=== PATIENT | female | born 2000 | race Caucasian/White ===

== ENCOUNTER 2023-08-07 15:00 | Emergency (ER) | payer OTHER, SELFPAY ==
--- NOTE | ~2023-08-07 | US_ITS ---
EXAMINATION: US pelvic complete DATE: 08/07/2023 15:54 INDICATION: R/o torsion of right ovary TECHNIQUE: Multiple transabdominal and endovaginal sonographic images of the pelvis were obtained. COMPARISON: None. FINDINGS: Uterus: 8.4 x 4.4 x 5.6 cm. Anteverted uterus, mildly retroflexed Endometrial complex measures 6.1 mm . Right Ovary: 4.0 x 2.2 x 2.5 cm. Vascular flow is present. No adnexal mass. Left Ovary: 2.3 x 1.9 x 1.9 cm. Vascular flow is present. No adnexal mass. There is no free fluid in the pelvis. IMPRESSION: Normal pelvic sonogram findings. Reviewed, dictated and finalized at location K. CING SYSTEM OPERATOR
[2023-08-07 15:02] VITALS: BP 123/57; PULSE 88; RESP 16; TEMP 36.2; O2SAT 100
--- NOTE | 2023-08-07 15:26 | ED.ABDPAIN ---
HPI - Abdominal Pain General Chief Complaint: Abdominal Pain Stated Complaint: abd pain Time Seen by Provider: 08/07/23 15:07 History of Present Illness HPI narrative: 23-year-old female presenting to the emergency department for evaluation of right lower quadrant pain that occurred during sexual intercourse. Patient states that she was recently diagnosed with Trichomonas, candidiasis and chlamydia. Patient has completed all of her treatments for these. Patient states that she was having transitional vaginal intercourse and had onset of pelvic pain. Patient reports that the pain lasted approximately 30 minutes and has since resolved. Patient denies any current visual bleeding or vaginal discharge. Related Data Allergies Allergy/AdvReac Type Severity Reaction Status Date / Time No Known Allergies Allergy Verified 08/07/23 15:01 Review of Systems Review of Systems: All systems reviewed & are unremarkable except as noted in HPI and below Exam Narrative: APPEARANCE: Well appearing, no pain, no distress, well-nourished. HEAD: normocephalic, atraumatic. EYES: PERRLA/EOMI, conjunctivae clear. NOSE: Normal no drainage EARS:TMS clear with good light reflex. THROAT: Pharynx clear, no exudate. NECK: Supple. No adenopathy, no masses. RESPIRATORY: Airway patent, respirations nonlabored. Clear to auscultation bilaterally, no rales, rhonchi, wheezing. CARDIOVASCULAR: Regular rate and rhythm without murmurs rubs or gallops. ABDOMINAL: Soft, nontender, nondistended, normal bowel sounds MUSCULOSKELETAL: Moves all extremities. Strength/ROM intact, No edema, No calf tenderness. NEURO: Alert. Cranial nerves II through XII intact. Good gait. Good coordination Pelvic: Patient declined a pelvic exam. SKIN: Warm, dry. Normal Color PSYCHIATRIC: Normal affect/mood. Course Course Emergency Course: 23-year-old female presenting ED for evaluation of vaginal pain. Ultrasound showed no evidence of torsion. Patient declined the pelvic exam the patient did feel improved. Patient was encouraged to have close follow-up with her physicians. All questions concerns were addressed patient was well-appearing at time of discharge. Vital Signs Vital signs: Vital Signs Temperature 97.2 F L 08/07/23 15:02 Pulse Rate 88 08/07/23 15:02 Respiratory Rate 16 08/07/23 15:02 Blood Pressure 123/57 L 08/07/23 15:02 Pulse Oximetry 100 08/07/23 15:02 Oxygen Delivery Room Air 08/07/23 15:02 Temperature 98.2 F 08/07/23 16:55 Pulse Rate 71 08/07/23 16:55 Respiratory Rate 15 08/07/23 16:55 Blood Pressure 119/73 08/07/23 16:55 Pulse Oximetry 100 08/07/23 16:55 Oxygen Delivery Room Air 08/07/23 15:02 MDM - Abdominal Pain Differential Diagnosis Differential diagnosis: Likely abdominal pain, constipation and other Lab Data Attestation: I reviewed the patient's lab results. Imaging Data Radiologist's impression: ITS Impressions Pelvis Ultrasound 08/07/23 16:18 IMPRESSION: Normal pelvic sonogram findings. Discharge Plan Discharge Clinical Impression: Abdominal pain Patient Disposition: Home, Self-Care Condition: Improved Instructions: Antibiotic Form, Abdominal Pain (ED) Additional Instructions: Pelvic rest. Tylenol and ibuprofen for pain control. Have close follow-up with your primary care physician. Follow-up/Referrals: Vernell Ortega [Other]
[2023-08-07 16:55] VITALS: BP 119/73; PULSE 71; RESP 15; TEMP 36.8; O2SAT 100
== END 2023-08-07 17:39 | disposition home or self-care (01) ==
PROVIDERS: Emergency Provider Emergency Medicine
DX: R10.31 Right lower quadrant pain (principal)
CPT/HCPCS: 76856; 99284

== ENCOUNTER 2025-03-27 11:44 | Emergency (ER) | payer OTHER, SELFPAY ==
[2025-03-27 11:51] VITALS: BP 132/71; PULSE 99; RESP 16; TEMP 36.6; O2SAT 100
--- OUTSIDE RECORDS SUMMARY | 2025-03-27 12:18 | XMS_ITS | Clinical Summary ---
Author Organization [address] Address [address] [place] [id number] Care Team Providers Care Pin Ticket Machine Operator Name Role Phone Vernell Ortega MD Primary Care Provider [phone] Allergies No known active allergies Medications hydrOXYzine (ATARAX) 25 mg tablet Take 1 tablet (25 mg total) by mouth every 8 (eight) hours as needed 3 Active escitalopram (LEXAPRO) 20 mg tablet 1 tab(s) orally once a day 2 Active fexofenadine (LARRY) 30 mg/5 mL suspension Take 5 mL (30 mg total) by mouth 2 (two) times a day as needed Active metroNIDAZOLE (METROGEL) 0.75 % (37.5mg/5 gram) vaginal gelIndications: Bacterial Vaginosis Apply to vagina nightly for 5 nights. 70 g 4 Active Additional Information Patient not taking.Reported on 11/12/2024 Active Problems No known active problems Social History Tobacco Use Types Packs/Day Years Used Date Smoking Tobacco: Never Smokeless Tobacco: Never Tobacco Cessation:Counseling Given: Not Answered Comments Unknown Sex and Gender Information Value Date Recorded Sex Assigned at Not on file Legal Sex Female 7:26 PM CDT Gender Identity Not on file Sexual Orientation Not on file Obstetrics History Last Filed Vital Signs Vital Sign Reading Time Taken Comments Blood Pressure 99/65 11/12/2024 6:09 PM CDT Pulse 83 11/12/2024 6:09 PM CDT Temperature 36.8 C (98.2 F) 11/12/2024 6:09 PM CDT Respiratory Rate 18 11/12/2024 6:09 PM CDT Oxygen Saturation 98% 11/12/2024 6:09 PM CDT Inhaled Oxygen Concentration - - Weight 62.8 kg (138 lb 8 oz) 11/12/2024 6:09 PM CDT Height 170.2 cm (5' 7.01) 11/12/2024 6:09 PM CD T Body Mass Index 21.69 11/12/2024 6:09 PM CDT Plan of Treatment Health Maintenance Due Date Last Done Comments Cervical Cancer Screening 2001 Depression Screening 2001 Hepatitis C Screening 2001 Meningococcal B Vaccine (1 of 2 - Standard) 2017 Regular Well Visit/Exam 18-64 2019 Covid-19 Vaccine ( season) 2024 09/12/2021, 02/04/2021, 01/14/2021 Influenza Vaccine (#1) 2025 , 05/06/2020, 05/30/2009 DTaP/Tdap/Td Vaccine (8 - Td or Tdap) 03/15/2033 03/15/2023, 03/05/2013, 04/03/2007, Additional history exists Hepatitis B Screening Completed 06/12/2002 , 2001, 2001 Pneumococcal vaccine <65 Aged Out 12/07/2002, 11/21 No longer eligible based on patient's age to complete this topic Varicella Vaccines Completed 04/03/2007, 06/12/2002 HPV Vaccines Completed 02/09/2016, 04/22, 03/05/2013 Insurance [employer] [facility]ESS [facility] Care Teams Pin Ticket Machine Operator Relationship Specialty Start Date End Date Vernell Ortega MD [address] [place], [place] [phone] PCP - General Family Medicine 03/26/23
--- OUTSIDE RECORDS SUMMARY | 2025-03-27 12:18 | XMS_ITS | Encounter Summary ---
Author Organization [facility] Address [address] [place] [address] Care Team Providers Care Hotel Breakfast Attendant Name Role Phone Vernell Ortega MD Primary Care Provider [phone] Encounter Details Date Type Department Care Team (Late Contact Info) Description 03/27/2025 Orders Only [address] [address] Zully Barnett RN [address] [place] [address] Social History Tobacco Use Types Packs/Day Years Used Date Smoking Tobacco: Never Smokeless Tobacco: Never Alcohol Use Standard Drinks/Week Comments No 0 (1 standard drink = 0.6 oz pur e alcohol) PHQ-2 Answer Date Recorded PHQ-2 Total Score 0 02/03/2023 Comments No Sex and Gender Information Value Date Recorded Sex Assigned at Not on file Legal Sex Female 9:26 PM CDT Gender Identity Not on file Sexual Orientation Not on file Occupation Industry Job Start Date Job End Date Not on file Not on file Not on file Not on file Travel History Travel Start Travel End [place] 03/07/2025 03/12/2025 documented as of this encounter Plan of Treatment Upcoming Encounters Date Type Department Care Team (Late Contact Info) Description 04/17/2025 12:30 PM CDT Appointment [address] [address] [place] [address] [place] [address] 06/05/2025 12:45 PM CDT Appointment [facility] Cardiology [address] [place] [address] Cristhian Hamm MD [facility] [place] [address] documented as of this encounter Visit Diagnoses Not on filedocumented in this encounter Additional Health Concerns Assessment Noted Time A Body Mass Index follow-up plan has been documented for the patient 08/12/2023 9:15 PM FACILITY MAINTENANCE MANAGER documented as of this encounter Care Teams Hotel Breakfast Attendant Relationship Specialty Start Date End Date Vernell Ortega MD [address] [place] [address] PCP - General Family Medicine 08/25/20 documented as of this encounter
--- OUTSIDE RECORDS SUMMARY | 2025-03-27 12:18 | XMS_ITS | Encounter Summary ---
Author Organization [facility] Address [address] [place] [address] Care Team Providers Care Isotope Technologist Name Role Phone Vernell Ortega MD Primary Care Provider [phone] Encounter Details Date Type Department Care Team (Late Contact Info) Description 01/28/2025 Results Follow-Up [facility] [address] [place] [address] Goldy Chiang, [place] [address] [place] [address] CBC (Hemogram), Urinalysis with microscopic, EKG 12 Lead, Additional followed-up results: 10 Social History Tobacco Use Types Packs/Day Years [...] file Travel History Travel Start Travel End [place] 03/07/2025 03/12/2025 documented as of this encounter Plan of Treatment Upcoming Encounters Date Type Department Care Team (Late Contact Info) Description 04/17/2025 12:30 PM CDT Appointment [facility] [address] [place] [address] Vernell Ortega MD [address] [place] [address] 06/05/2025 12:45 PM CDT Appointment [facility] Cardiology [address] [place] [phone] Cristhian Hamm MD [address] [place] [address] documented as of this encounter Procedures Procedure Name Priority Date/Time Associated Diagnosis Comments URINE CULTURE Routine 01/28/2025 3:09 PM CDT Abnormal urinalysis documented in this encounter Results * Urine culture (01/28/2025 3:09 PM CDT) Final Microbiology results [facility] Comment: Urine Culture Final Source: Report Date/Time: 01/30/2025 09:45 Collection Date/Time: 01/28/2025 15:09 QLAB Clinical Information Urine specimen collection type? Clean Catch Culture Observation No Growth Urine URINE SPECIMEN FROM URINARY BLADDER / Unknown 01/28/2025 3:09 PM CDT 01/28/2025 3:09 PM CDT Comment:- Narrative [facility] - 01/30/2025 9:45 AM CDT Testing performed at [facility], [address] [place] [address]. CLIA [id number] Phone [phone] Ext [phone] Quill Layer Quoc Campuzano MD us Vernell Ortega MD MICROBIOLOGY - GENERAL ORDERABLE S Final Result [facility] [address] [place] [phone] documented in this encounter Visit Diagnoses Diagnosis Abnormal urinalysis- Primary Other nonspecific finding on examination of urine documented in this encounter Additional Health Concerns Assessment Noted Time A Body Mass Index follow-up plan has been documented for the patient 08/12/2023 9:15 PM WELL POINT PUMPING SUPERVISOR documented as of this encounter Care Teams Isotope Technologist Relationship Specialty Start Date End Date Vernell Ortega MD [address] [place] [address] PCP - General Family Medicine 08/25/20 documented as of this encounter
--- OUTSIDE RECORDS SUMMARY | 2025-03-27 12:18 | XMS_ITS | Encounter Summary ---
Author Organization [employer] Address [address] [place] [address] Care Team Providers Care Dedicated Driver Name Role Phone Vernell Ortega MD Primary Care Provider [phone] Encounter Details Date Type Department Care Team (Late Contact Info) Description 03/26/2025 Results Follow-Up [address] [address] Vernell Ortega MD [address] [place] [address] Thinprep Imaging Pap And HPV Mrna E6/E7 Social History Tobacco Use Types Packs/Day Years [...] file Travel History Travel Start Travel End [place] 03/07/2025 03/12/2025 documented as of this encounter Plan of Treatment Upcoming Encounters Date Type Department Care Team (Late Contact Info) Description 04/17/2025 12:30 PM CDT Appointment [address] [address] Vernell Ortega MD [address] [place] [address] 06/05/2025 12:45 PM CDT Appointment [facility] Cardiology [address] [place] [address] Cristhian Hamm MD [facility] [place] [address] documented as of this encounter Visit Diagnoses Not on filedocumented in this encounter Additional Health Concerns Assessment Noted Time A Body Mass Index follow-up plan has been documented for the patient 08/12/2023 9:15 PM CHART WRITER documented as of this encounter Care Teams Dedicated Driver Relationship Specialty Start Date End Date Vernell Ortega MD [address] [place] [address] PCP - General Family Medicine 08/25/20 documented as of this encounter
--- OUTSIDE RECORDS SUMMARY | 2025-03-27 12:18 | XMS_ITS | Encounter Summary ---
Author Organization [employer] Address [address] [place] [address] Care Team Providers Care Talent Buyer Name Role Phone Vernell Ortega MD Primary Care Provider [phone] Reason for Visit * Reason Onset Date Comments lexapro side effects 03/26/2025 Encounter Details Date Type Department Care Team ([facility] st Contact Info) Description 03/26/2025 Telephone [facility] Family Practice [address] [place] [address] Zully Barnett RN [address] [place] [address] lexapro side effects Social History Tobacco Use Types Packs/Day Years [...] file Travel History Travel Start Travel End [place] 03/07/2025 03/12/2025 documented as of this encounter Miscellaneous Notes * Telephone Encounter - Zully Barnett RN - 03/26/2025 3:18 PM CDT Patient is calling in regards to side effects of the lexapro she was taking it prior to bedtime. She would wake up in the middle of the night muscle pain and chills and feeling off. She has stopped the lexapro she would like to wait a week or two and then discuss starting a new medication. She willcall next week with an update. documented in this encounter Plan of Treatment Upcoming Encounters Date Type Department Care Team (Late st Contact Info) Description 04/17/2025 12:30 PM CDT Appointment [facility] Family Practice [address] [place] [phone] Vernell Ortega MD [address] [place] [address] 06/05/2025 12:45 PM CDT Appointment [facility] Cardiology [address] [place] [phone] Cristhian Hamm MD [address] [place] [phone] documented as of this encounter Visit Diagnoses Not on filedocumented in this encounter Additional Health Concerns Assessment Noted Time A Body Mass Index follow-up plan has been documented for the patient 08/12/2023 9:15 PM AIRLINE LOUNGE RECEPTIONIST documented as of this encounter Care Teams Talent Buyer Relationship Specialty Start Date End Date Vernell Ortega MD [address] [place] [address] PCP - General Family Medicine 08/25/20 documented as of this encounter
--- OUTSIDE RECORDS SUMMARY | 2025-03-27 12:18 | XMS_ITS | Clinical Summary ---
Author Organization [employer] Address [address] [place] [address] Care Team Providers Care Production Sorter Name Role Phone Henrry Jacob MD Primary Care Provider [phone] Source Comments This disclosure is being made pursuant to the Adknowledge program and maynot contain all information available regarding this patient.[employer] [facility] Allergies No known active allergies Medications fexofenadine (LARRY) 30 MG/5ML suspension Take 5 mLs by mouth 2 (two) times daily as needed. 1 tsp(s) By Mouth 2 Times A Day prn Active hydrOXYzine (ATARAX) 25 MG tablet Take 1 (one) tablet by mouth every 8 (eight) hours as needed for Anxiety. 30 tablet 02/03/2023 Active escitalopram (Lexapro) 10 MG tablet Take 1 (one) tablet (10 mg total) by mouth daily. 30 tablet 2 03/20/2025 Active fluconazole (DIFLUCAN) 150 MG tablet Take one tablet every 72 hours x 3 3 tablet 03/27/2025 Active Active Problems Problem Noted Date Diagnosed Date ISAIAH (generalized anxiety disorder) 03/18/2020 Social anxiety disorder 03/18/2020 Myopia of both eyes 02/19/2020 Vegetarian 02/26/2019 Wears glasses 12/28/2018 History of appendectomy 12/28/2018 History of tonsillectomy 04/22/2016 Allergic rhinoconjunctivitis 03/15/2016 Acne vulgaris 01/15/2015 Need for desensitization to allergens 04/13/2012 Overview (08/01/2014): Overview: ALLISON RICHARDSON MD Overview: ALLISON RICHARDSON MD Resolved Problems Problem Noted Date Diagnosed Date Resolved Date Streptococcal sore throat 02/26/2019 Overview (02/26/2019): Strep throat - Onset Date: Decreased ROM of lumbar spine 01/19/2018 02/15/2018 Muscle spasm 01/19/2018 02/15/2018 Muscle weakness 01/19/2018 02/15/2018 Chronic bilateral low back p ain without sciatica 01/17/2018 02/15/2018 Rosacea 03/17/2017 07/01/2017 Dietary imbalance: doesn't eat meat 08/03/2016 02/19/2020 Appendicitis 09/24/2015 09/24/2015 Overview (09/24/2015): Appendicitis, acute - Onset Date: Encounters Date Type Department Care Team Description 03/27/2025 Orders Only [facility] [address] [phone] Zully Barnett RN 03/26/2025 Results Follow-Up [place] [address] [address] [phone] Henrry Jacob MD Thinprep Imaging Pap And HPV Mrna E6/E7 03/26/2025 Telephone [place] [address] [phone] Zully Barnett, RN lexapro side effects 03/20/2025 3:30 PM CDT Office Visit [place] [address] [phone] Henrry Jacob MD Routine medical exam (Primary Dx); Routine Papanicolaou smear; Anxiety 03/20/2025 Travel 03/04/2025 9:15 AM CDT Office Visit [facility] [address] [place] [address] [address] [phone] Cristhian Hamm MD SOB (shortness of breath) (Primary Dx); Lightheadedness 03/04/2025 8:00 AM CDT Clinical Support [facility] [address] [place] [phone] Cristhian Hamm MD Cook, Cynthia A, RN Chest pain, unspecified type; SOB (shortness of breath); Light headed 03/03/2025 Travel 02/27/2025 4:20 PM CDT Office Visit [facility] [address] [place], [place] [phone] Henrry Jacob MD Anxiety (Primary Dx); Dizziness; Lightheadedness; Palpitations 02/27/2025 Travel 02/13/2025 10:20 AM CDT Clinical Support [facility] [address] [place], [place] [phone] Cristhian Hamm MD MarkerAmanda harmon, RTR Chest pain, unspecified type; SOB (shortness of breath); Light headed 02/13/2025 10:15 AM CDT Lab [facility] [address] [place] [phone] Cristhian Hamm MD Chest pain, unspecified type; SOB (shortness of breath); Light headed 02/13/2025 9:30 AM CDT Office Visit [facility] [address] [place] [phone] Henrry Jacob MD Rafi, Adam, MD Chest pain, unspecified type (Primary Dx); SOB (shortness of breath); Light headed 02/13/2025 Results Follow-Up [facility] [address] [place] [phone] Cristhian Hamm MD Troponin I, D-dimer, quantitative, XR Chest 2 Views, Additional followed-up results: 2 02/13/2025 Travel 02/07/2025 4:00 PM CDT Clinical Support [facility] [address] [place] [phone] Henrry Jacob MD Wilson, Annie N, RTR Dizziness; Lightheadedness; Palpitations 02/07/2025 Travel 01/28/2025 4:30 PM CDT Lab [facility] [place] [phone] Henrry Jacob MD 01/28/2025 4:15 PM CDT Clinical Support [facility] [address] [place], [place] [address] [phone] Henrry Jacob MD Ritterbusch, Tammy J, [facility] Dizziness; Lightheadedness; Palpitations 01/28/2025 3:25 PM CDT Lab [facility] [place] [phone] Henrry Jacob MD Dizziness; Lightheadedness; Palpitations 01/28/2025 3:20 PM CDT Clinical Support [facility] [place] [phone] Henrry Jacob MD Bigelow, Elisha A, RTR Dizziness; Lightheadedness; Palpitations 01/28/2025 2:10 PM CDT Office Visit [address] [phone] Henrry Jacob MD Anxiety (Primary Dx); Dizziness; Lightheadedness; Palpitations 01/28/2025 Results Follow-Up [address] [phone] Goldy Chiang MA CBC (Hemogram), Urinalysis with microscopic, EKG 12 Lead, Additional followed-up results: 10 01/28/2025 Travel from Last 3 Months Immunizations Immunization Administration Dates Next Due COVID-19 (PFIZER-purple cap) MRNA ages 12+ 09/12/2021,02/04/2021,01/14/2021 DTaP (Infanrix) DTaP 04/03/2007,09/07/19 03,2001,10/10,2001 Hepatitis A (Vaqta) HepA pediatric 12/28/2018 Hepatitis A pediatric 03/05/2013 Hepatitis B-Haemophilus infl uenzae type b (Comvax) HepB-Hib 06/12/2002,2001,2001 Human Papillomavirus (Gardasil 4) HPV4 3,03/05/2013 Human Papillomavirus (Gardas il 9) 9vHPV 02/09/2016 Influenza (AFLURIA) IIV3, pr efilled syringe 05/28/2021 Influenza (FLUZONE) IIV4, pr efilled syringe/single dose vial 05/06/2020 Influenza Split 05/30/2009 LIVE Vpiaoqj-Wtcio-Zlrrhxf ( M-M-R II) MMR 04/03/2007,06/12/2002 LIVE Varicella (Varivax) RICHARD 04/03/2007,06/12/20 Meningococcal Conjugate (Men actra) MCV4 MenACWY-D 12/28/2018,03/05/2013 Pneumococcal Conjugate-7 (Pr evnar 7) PCV7 12/07/2002,2001 Polio (Ipol) IPV 04/03/2007, 3,2001,08/01 Tdap 03/05/2013 Tetanus, diphtheria and acel lular pertussis (Adacel)Tdap 03/15/2023 Family History Medical History Relation Name Comments Heart disease Maternal Grandfather Allergic rhinitis Mother Arthritis Mother Depression Mother Other Other No significant family history - All Family: Noted on 2010-08-04 13:34:55 Heart disease Paternal Grandfather Diabetes Neg Hx Relation Name Status Comments Maternal Grandfather Mother Other Paternal Grandfather Social History Tobacco Use Types Packs/Day Years Used Date Smoking Tobacco: Never Smokeless Tobacco: Never Tobacco Cessation:Counseling Given: Not Answered Alcohol Use Standard Drinks/Week Comments No 0 [...] file Travel History Travel Start Travel End [place] 03/07/2025 03/12/2025 Last Filed Vital Signs Vital Sign Reading Time Taken Comments Blood Pressure 122/82 03/20/2025 3:38 PM CDT Pulse 81 03/20/2025 3:38 PM CDT Temperature 36.3 C (97.4 F) 03/20/2025 3:38 PM CDT Respiratory Rate 20 03/05/2023 2:16 PM CDT Oxygen Saturation 100% 03/20/2025 3:38 PM CDT Inhaled Oxygen Concentration - - Weight 60.8 kg (134 lb) 03/20/2025 3:38 PM CDT Height 170.2 cm (5' 7) 03/20/2025 3:38 PM CDT Body Mass Index 20.99 03/20/2025 3:38 PM CDT Plan of Treatment Upcoming Encounters Date Type Department Care Team (Late st Contact Info) Description 04/17/2025 12:30 PM CDT Appointment [facility] [address] [place] [phone] Henrry Jacob MD [address] [place] [phone] 06/05/2025 12:45 PM CDT Appointment [facility] [address] [place] [phone] Cristhian Hamm MD [address] [place] [phone] Health Maintenance Due Date Last Done Comments Meningococcal B Vaccine (1 of 2 - Standard) 2017 Chlamydia Screening 08/09/2024 08/09/2023 ( Charged), 08/09/2023 Influenza Vaccine (#1) 2025 , 05/06/2020, 05/30/2009 COVID-19 Vaccine ( season) 2026 09/12/2021, 02/04/2021, 01/14/2021 Postponed from 04/22/2024 (Patient Declined) Annual Wellness Visit 03/20/2026 03/20/2025 , 03/15/2023, 08/25/2020 Lab-Cholesterol Screening 02/21/20272021, 12/23/2021, 06/02/2015, Additional history exists Cervical Cancer Screening 03/20/2028 Pap Smear 03/20/2028 03/20/2025, 03/15/2023 HPV 03/20/2030 03/20/2025 Tetanus/Pertussis Vaccine Teen/Adult (8 - Td or Tdap) 03/15/2033 03/15/2023, 03/05/2013, 04/03/2007, Additional history exists Zoster (Shingles) Vaccine 50+ (1 of 2) 2051 RSV Adult (1 - 1-dose 75+ series) 2076 HIB Vaccine Completed 06/12/2002, 09/22, 2001 Hepatitis B Vaccine Completed 06/12/2002, 2001, 2001 Pneumococcal Vaccines 0-49 yo Aged Out 12/07/2002, 2001 No longer eligibl e based on patient's age to complete this topic IPV Vaccine Completed 04/03/2007, 08/22, 2001, Additional history exists HPV Vaccine (9-26yo & Shared Decision 27-45yo) Completed 02/09/2016, 05/08/2013, 03/05/2013 Hepatitis A Vaccine Completed 12/28/2018, 3 Meningococcal Conjugate Vaccine Completed 12/28/2018, 03/05/2013 Lab-Hepatitis C Screening Completed 08/09/2023 RSV < 20 Months Aged Out No longer el igible based on patient's age to complete this topic Procedures Procedure Name Priority Date/Time Associated Diagnosis Comments THINPREP IMAGING PAP AND HPV MRNA E6/E7 Routine 03/20/2025 4:37 PM CDT Routine Papanicolaou smear Routine medical exam STRESS TEST ONLY EXERCISE Routine 03/04/2025 7:53 AM CDT Chest pain, unspecified type SOB (shortness of breath) Light headed XR CHEST 2 VIEWS Routine 02/13/2025 10:2 0 AM CDT Chest pain, unspecified type SOB (shortness of breath) Light headed D-DIMER, QUANTITATIVE Routine 02/13/2025 10:11 AM CDT Chest pain, unspecified type SOB (shortness of breath) Light headed TROPONIN I Routine 02/13/2025 10:11 AM CDT Chest pain, unspecified type SOB (shortness of breath) Light headed PROBNP, N-TERMINAL Routine 02/13/2025 10 :11 AM CDT Chest pain, unspecified type SOB (shortness of breath) Light headed TTE (TRANSTHORACIC ECHO) COMPLETE Routine 02/07/2025 3:57 PM CDT Dizziness Lightheadedness Palpitations HOLTER MONITOR - 48 HOUR Routine 01/28/2025 3:40 PM CDT Dizziness Lightheadedness Palpitations URINALYSIS WITH MICROSCOPIC Routine 01/28/2025 3:27 PM CDT Dizziness Lightheadedness Palpitations FOLATE Routine 01/28/2025 3:27 PM CDT Dizziness Lightheadedness Palpitations VITAMIN B12 Routine 01/28/2025 3:27 PM CDT Dizziness Lightheadedness Palpitations 25 HYDROXY VITAMIN D Routine 01/28/2025 3:27 PM CDT Dizziness Lightheadedness Palpitations T4, FREE Routine 01/28/2025 3:27 PM CDT Dizziness Lightheadedness Palpitations T3, FREE Routine 01/28/2025 3:27 PM CDT Dizziness Lightheadedness Palpitations IRON DEFICIENCY PANEL Routine 01/28/2025 3:27 PM CDT Dizziness Lightheadedness Palpitations TSH Routine 01/28/2025 3:27 PM CDT Dizziness Lightheadedness Palpitations COMPREHENSIVE METABOLIC PANEL Routine 01/28/2025 3:27 PM CDT Dizziness Lightheadedness Palpitations CBC (HEMOGRAM) Routine 01/28/2025 3:27 PM CDT Dizziness Lightheadedness Palpitations EKG 12-LEAD Routine 01/28/2025 3:23 PM CDT Dizziness Lightheadedness Palpitations URINE CULTURE Routine 01/28/2025 3:09 PM CDT Abnormal urinalysis CHLAMYDIA/NG PCR STAT 08/09/2023 12:5 6 PM TRANSITION RN History of chlamydia HEPATITIS C ANTIBODY Routine 08/09/2023 12:56 PM TRANSITION RN Screen for STD (sexually transmitted disease) LIPID PANEL Routine 02/21/2022 1:21 PM CDT Medication management from Last 3 Months or Most Recently Relevant to Health Maintenance Results * (ABNORMAL) Thinprep Imaging Pap And HPV Mrna E6/E7 (03/20/2025 4:37 PM CDT) Clinical Information: None given PARKER [employer] [facility] Comment:[SL] Date LMP UNKNOWN [facility] Comment:[SL] Previous PAP 03/15/23 [facility] Comment:[SL] Prev BX NO [facility] Comment:[SL] Surepath Source Cerv[facility] Comment:[SL] Specimen Adequacy Satisfactory for evaluation. Endocervical/van sformation zone component present. Age and/or menstrual status not provided [facility] Comment:[SL] General Categorization Cytology Results: Epithelial Cell Abnormality(A) [facility] Comment:[SL] Interp/Result Atypical Squamous Cells of Undetermined Significance (ASC-US)(A) [facility] Comment:[SL] Infection Fungal organisms morphologically consistent with Kim spp. [facility] Comment:[SL] Comment: This Pap test has been evaluated with the ThinPrep(R) Imaging System. Suggest clinical correlation and follow-up as clinically appropriate [facility] Comment:[SL] Industry Analyst SEE NOTE NAHTALIE [facility] Comment: TMK, CT(ASCP) CT Screening Location: [place] [address] [place] [address] CLIA: [id number] Slide preparation performed at: [facility], [address] [place] [address], [address] CLIA: [id number] [] Pathologist: Bayron Ross M.D., Board Certified in Anatomic Pathology and Cytopathology. (electronic signature) Pathologist Release Date/Time: 03/26/2025 09:22AM [facility] Comment:[SL] See Note SEE NOTE [facility] Comment: EXPLANATORY NOTE: The Pap is a screening test for cervical cancer. It is not a diagnostic test and is subject to false negative and false positive results. It is most reliable when a satisfactory sample, regularly obtained, is submitted with relevant clinical findings and history, and when the Pap result is evaluated along with historic and current clinical information. [SL] HPV mRNA E6/E7 Not Detected Not Detected [facility] Comment: Methodology: Financial Services Counselor-Mediated Amplification This assay detects E6/E7 viral messenger RNA (mRNA) from 14 high-risk HPV types (16,18,31,33,35,39,45,51,52,56,58,59,66,68). Cervical sources are required for HPV testing. If a vaginal source from a patient who has had a total hysterectomy with removal of cervix was submitted, please contact the testing laboratory for alternative testing options. For additional information, please refer to http://education.Realie/faq/MMN940q7 (This link if provided for information/ educational purposes only.) [facility] order number: [id number] [CA] CERVIX UTERI STRUCTURE / Unknown 03/20/2025 4:37 PM CDT 03/22/2025 7:27 PM CDT Comment:- Narrative [facility] - 03/26/2025 10:03 AM CDT Testing performed at: [place], [facility], [phone], Systems Analyst: Bakari Flroes Testing performed at: [facility], [address], [place], [address], Systems Analyst: Earl Hansen Henrry Jacob MD PATHOLOGY/CYTOLOGY ORDERABLES Fi nal Result [facility] [address] [phone] * Stress test only exercise (03/04/2025 7:53 AM CDT) 03/04/2025 7:53 AM CDT Narrative [facility] - 03/04/2025 9:45 AM CDT Stress Test Report Patient Name: REENA HAWKINS R : 2000 Study Date: 03/04/2025 7:53:52 AM Gender: F Tech: Location: [facility] BSA: Weight(LB): 132.28 Quality: Good Order Provider: CRISTHIAN HAMM Account #: PROCEDURES: Stress Test Report: Treadmill stress test. INDICATIONS: Chest pain. Dizziness. Shortness of breath. FINDINGS: Facility: This exam was performed at [facility], [address] [place] [address]. Supervising Nurse: Cielo Engle RN. Supervising Physician: Dr. Hamm. ECG At Rest: Resting ECG shows Resting ECG shows normal sinus rhythm. Procedure Data: Bob Protocol. Baseline HR 105 bpm. Peak HR 188 bpm. Baseline BP 108/78. BP at Peak Exercise 128/56. Maximum BP observed 128/56. Predicted Maximal HR 197 bpm. Percent PMHR Achieved 95 %. Exercise Time 10 min 57 sec. Double Product [address]. METs 12.1. Reason For Termination patient request, hip pain. Exercise Tolerance: Exercise tolerance was very good. Cardiac Symptoms: Exercise stress related symptoms include dizziness and shortness of breath. Symptoms were resolved with rest. Arrhythmia: No arrhythmias noted during stress. ECG Post Exercise: No diagnostic ST changes. Hemodynamic Response: Heart rate is normal. Blood pressure is normal. CONCLUSIONS: No ECG evidence of ischemia at 95 % MPHR. No significant exercise induced arrhythmias. No exercise induced chest pain. Low Risk +6. Sensitivity of the test is 70% Electronically Signed By: Cristhian Hamm MD. [facility] 2025-03-04 09:44:12 CDT CC: CC: Procedure Note Cristhian Hamm MD - 03/04/2025 Stress Test Report Patient Name: REENA HAWKINS R : 2000 Study Date: 03/04/2025 7:53:52 AM Gender: F Tech: Location: [facility] BSA: Weight(LB): 132.28 Quality: Good Order Provider: CRISTHIAN HAMM Account #: PROCEDURES: Stress Test Report: Treadmill stress test. INDICATIONS: Chest pain. Dizziness. Shortness of breath. FINDINGS: Facility: This exam was performed at [facility], [address] [place] [address]. Supervising Nurse: Cielo Engle RN. Supervising Physician: Dr. Hamm. ECG At Rest: Resting ECG shows Resting ECG shows normal sinus rhythm. Procedure Data: Bob Protocol. Baseline HR 105 bpm. Peak HR 188 bpm. Baseline BP 108/78. BP at Peak Exercise 128/56. Maximum BP observed 128/56. Predicted Maximal HR 197 bpm. Percent PMHR Achieved 95 %. Exercise Time 10 min 57 sec. Double Product [id number]. METs 12.1. Reason For Termination patient request, hip pain. Exercise Tolerance: Exercise tolerance was very good. Cardiac Symptoms: Exercise stress related symptoms include dizziness and shortness of breath. Symptoms were resolved with rest. Arrhythmia: No arrhythmias noted during stress. ECG Post Exercise: No diagnostic ST changes. Hemodynamic Response: Heart rate is normal. Blood pressure is normal. CONCLUSIONS: No ECG evidence of ischemia at 95 % MPHR. No significant exercise induced arrhythmias. No exercise induced chest pain. Low Risk +6. Sensitivity of the test is 70% Electronically Signed By: Cristhian Hamm MD. [facility] 2025-03-04 09:44:12 CDT CC: CC: us Cristhian Hamm MD CV CARDIAC SERVICES ORDERABLES F inal Result [facility] * XR Chest 2 Views (02/13/2025 10:20 AM CDT) Anatomical Region Laterality Modality Chest Computed Radiogr aphy 02/13/2025 10:2 0 AM CDT Narrative 02/13/2025 8:43 [place] [address] DIAGNOSTIC IMAGING Name: REENA HAWKINS Ordering Phys: CRISTHIAN HAMM Date of : 2000 Gender: F Accession Number: [id number] EXAM DESCRIPTION: XR CHEST 2 VIEWS REASON FOR STUDY: Chest pain tachycardia and shortness of breath for 2-3 months TECHNIQUE: PA and lateral views of the chest COMPARISON: 02/14/2012 FINDINGS: LUNGS: The lungs are clear and normally inflated. There is no rogelio consolidation or pulmonary edema MEDIASTINUM: Mediastinal contours are normal. Cardiac silhouette is normal BONES: Unremarkable LINES/HARDWARE: Unremarkable IMPRESSION: No acute cardiopulmonary disease THIS IS AN ELECTRONICALLY VERIFIED FINAL REPORT 02/13/2025 8:41 PM - Electronically signed by John Choi M.D. Procedure Note John Choi MD - 02/13/2025 [place] [address] DIAGNOSTIC IMAGING Name: REENA HAWKINS Ordering Phys: CRISTHIAN HAMM Date of : 2000 Gender: F Accession Number: [id number] EXAM DESCRIPTION: XR CHEST 2 VIEWS REASON FOR STUDY: Chest pain tachycardia and shortness of breath for 2-3 months TECHNIQUE: PA and lateral views of the chest COMPARISON: 02/14/2012 FINDINGS: LUNGS: The lungs are clear and normally inflated. There is no rogelio consolidation or pulmonary edema MEDIASTINUM: Mediastinal contours are normal. Cardiac silhouette is normal BONES: Unremarkable LINES/HARDWARE: Unremarkable IMPRESSION: No acute cardiopulmonary disease THIS IS AN ELECTRONICALLY VERIFIED FINAL REPORT 02/13/2025 8:41 PM - Electronically signed by John Choi M.D. Cristhian Hamm MD [facility]AG[facility] ORDERABLE S Final Result * Probnp, N-Terminal (02/13/2025 10:11 AM CDT) NT-proBNP 75 <125 pg/mL [facility] Comment:[facility] order number: [id number] Blood 02/13/2025 10:1 1 AM CDT 02/14/2025 3:10 AM CDT Comment:- Narrative [facility] - 02/14/2025 2:36 PM CDT Testing performed at: [facility], [address] [place] [address], [phone], Systems Analyst: Earl Hansen MD Cristhian Hamm MD LAB BLOOD ORDERABLES Final Resul t Performing Organization Address [facility] de Phone Number [facility] [address] [place] [address] [phone] * Troponin I (02/13/2025 10:11 AM CDT) Pathologist [facility] Troponin I HIGH SENSITIVITY <2.7 <14.0 ng/L [facility] Blood BLOOD SPECIMEN / Unknown 02/13/2025 10:11 AM CDT 02/13/2025 10:11 AM CDT Comment:- Narrative [facility] - 02/13/2025 12:22 PM CDT No results for input(s): TROPONIN, [id number], TROPIHISENS in the last 72 hours. No lab exists for component: TROPONIN I Testing performed at [facility], [address] [place] [address]. CLIA [id number] Phone [phone] Ext [phone] Systems Analyst Quoc Campuzano MD Cristhian Hamm MD LAB BLOOD ORDERABLES Final Resul t Performing Organization Address [facility] de Phone Number [facility] [address] [place] [address] [phone] * D-dimer, quantitative (02/13/2025 10:11 AM CDT) Pathologist [facility] D-Dimer Sens Quant <0.19 <0.50 mg/L (FEU) [facility] Blood 02/13/2025 10:1 1 AM CDT 02/13/2025 10:11 AM CDT Comment:- Narrative [facility] - 02/13/2025 11:30 AM CDT A value <0.5 mg/L (FEU) indicates that DVT or PE are highly unlikely. The INNOVANCE D-Dimer assay is intended for use as an aid in the diagnosis of venous thromboembolism (VTM) [deep vein thrombosis (DVT) or pulmonary embolism (PE)]. The measurement of D-Dimer should not be used as an aid in the diagnosis of VTE, in patients with: -Therapeutic dose anticoagulant therapy for >24 hours -Fibrinolytic therapy within previous 7 days -Trauma or surgery within previous 4 weeks -Disseminated malignancies -Aortic aneurysm -Sepsis, severe infections, pneumonia, severe skin infections -Liver cirrhosis - Testing performed at [facility], [address] [place] [address]. CLIA [id number] Phone [phone] Ext [phone] Systems Analyst Quoc Campuzano MD us Cristhian Hamm MD LAB BLOOD ORDERABLES Final Resul t [facility] [address] [place] [address] [phone] * TTE (Transthoracic Echo) Complete (02/07/2025 3:57 PM CDT) 02/07/2025 3:57 PM CDT Narrative [facility] - 02/11/2025 8:38 PM CDT Echocardiographic Report Patient Name: REENA HAWKINS R : 2000 Study Date: 02/07/2025 3:57:41 PM Gender: F Tech: Location: [facility] Ref.Provider: HENRRY JACOB Height(Cm): 170 BSA: 1.71 Weight(Kg): 62.14 Heart Rate: 66 Quality: Good Order Provider: HENRRY JACOB PROCEDURES: Echocardiographic Report: Transthoracic echocardiogram with complete 2D, M-Mode, color flow and Doppler examination. INDICATIONS: Dizziness, and Palpitations. Measurements: 2D/M Mode Measurement Value Normal Range IVSd MM 0.68 [ 0.60 - 0.90 ] cm IVSs MM 1.22 cm LVIDd MM 4.88 [ 3.80 - 5.20 ] cm LVIDs MM 2.94 [ 2.20 - 3.50 ] cm LVPWd MM 0.52 [ 0.60 - 0.90 ] cm LVPWs MM 0.95 cm AoR Diam MM 2.60 [ 2.70 - 3.30 ] cm LA Dimen MM 3.20 [ 2.70 - 3.80 ] cm LA/Ao MM 1.23 ratio ACS MM 1.50 cm IVSd 2D 0.70 [ 0.60 - 0.90 ] cm LVIDd 2D 5.00 [ 3.80 - 5.20 ] cm LVPWd 2D 0.60 [ 0.60 - 0.90 ] cm LA Volume Index 14.40 [ 16.00 - 34.00 ] ml/m2 Measurement Value Normal Range 2D/M Mode Doppler Measurement Value Normal Range AV Mean PG 4.00 mmHg AV Peak Herberth 135.00 [ 100.00 - 170.00 ] cm/sec AV Peak PG 7.00 mmHg RONIT VTI 2.25 cm2 AV VTI 28.10 cm LVOT Diam 2.00 cm LVOT Area 3.14 cm2 LVOT Mean [place]ber[place] 57.30 cm/sec LVOT Mean PG 2.00 mmHg LVOT Peak [place] 93.30 [ 70.00 - 110.00 ] cm/sec LVOT Peak PG 3.00 mmHg LVOT VTI 20.10 cm MV E Peak Herberth 101.00 [ 60.00 - 130.00 ] cm/sec MV A Peak [place]th 36.80 [ 100.00 - 120.00 ] cm/sec MV E/A 2.70 [ 0.80 - 1.50 ] ratio MV Decel Time 208.00 [ 104.00 - 258.00 ] msec MV PHT 79.00 [ 20.00 - 100.00 ] ms PV Peak Herberth 107.00 [ 40.00 - 80.00 ] cm/sec PV Peak PG 5.00 mmHg TR Peak Herberth 235.00 [ 100.00 - 280.00 ] cm/sec TR Peak PG 22.00 mmHg Measurement Value Normal Range Doppler - FINDINGS: Performing Technologist: Izzy Beth. Facility: This exam was performed at [facility], [address] [place] [address]. Left Ventricle: Normal left ventricular systolic function. The left ventricular chamber size is normal. Normal left ventricular wall thickness. Ejection fraction is estimated at 55-60 %. Diastolic Function: Diastolic function is normal. Cardiac Rhythm: Normal sinus rhythm. Right Ventricle: Normal right ventricular size. Normal right ventricular function. TAPSE is 2.24 cm. Left Atrium: The left atrium is normal in size. Right Atrium: The right atrium is normal in size. Atrial Septum: Normal atrial septum. Mitral Valve: Trivial mitral regurgitation. Aortic Valve: No significant aortic stenosis or insufficiency. Trileaflet aortic valve. Tricuspid Valve: There is trivial tricuspid regurgitation. Pulmonic Valve: Normal pulmonic valve appearance and function. Pericardium: Normal pericardium with no significant pericardial effusion or masses seen. Aorta: Normal aortic root. IVC: Normal size and normal respiratory collapse consistent with normal right atrial pressure (<5 mmHg). CONCLUSIONS: Normal left ventricular systolic function. The left ventricular chamber size is normal. Normal left ventricular wall thickness. Ejection fraction is estimated at 55-60 %. Diastolic function is normal. Normal sinus rhythm. Normal right ventricular size. Normal right ventricular function. TAPSE is 2.24 cm. The left atrium is normal in size. The right atrium is normal in size. Normal atrial septum. Trivial mitral regurgitation. No significant aortic stenosis or insufficiency. Trileaflet aortic valve. There is trivial tricuspid regurgitation. Normal pulmonic valve appearance and function. Normal pericardium with no significant pericardial effusion or masses seen. Normal aortic root. Normal size and normal respiratory collapse consistent with normal right atrial pressure (<5 mmHg). Electronically Signed By: Cristhian Hamm MD. [facility] 2025-02-11 20:38:33 CDT CC: CC: Procedure Note Cristhian Hamm MD - 02/11/2025 Echocardiographic Report Patient Name: REENA HAWKINS R : 2000 Study Date: 02/07/2025 3:57:41 PM Gender: F Tech: Location: [facility] Ref.Provider: HENRRY JACOB Height(Cm): 170 BSA: 1.71 Weight(Kg): 62.14 Heart Rate: 66 Quality: Good Order Provider: HENRRY JACOB PROCEDURES: Echocardiographic Report: Transthoracic echocardiogram with complete 2D, M-Mode, color flow and Doppler examination. INDICATIONS: Dizziness, and Palpitations. Measurements: 2D/M Mode Measurement Value Normal Range IVSd MM 0.68 [ 0.60 - 0.90 ] cm IVSs MM 1.22 cm LVIDd MM 4.88 [ 3.80 - 5.20 ] cm LVIDs MM 2.94 [ 2.20 - 3.50 ] cm LVPWd MM 0.52 [ 0.60 - 0.90 ] cm LVPWs MM 0.95 cm AoR Diam MM 2.60 [ 2.70 - 3.30 ] cm LA Dimen MM 3.20 [ 2.70 - 3.80 ] cm LA/Ao MM 1.23 ratio ACS MM 1.50 cm IVSd 2D 0.70 [ 0.60 - 0.90 ] cm LVIDd 2D 5.00 [ 3.80 - 5.20 ] cm LVPWd 2D 0.60 [ 0.60 - 0.90 ] cm LA Volume Index 14.40 [ 16.00 - 34.00 ] ml/m2 Measurement Value Normal Range 2D/M Mode Doppler Measurement Value Normal Range AV Mean PG 4.00 mmHg AV Peak Herberth 135.00 [ 100.00 - 170.00 ] cm/sec AV Peak PG 7.00 mmHg RONIT VTI 2.25 cm2 AV VTI 28.10 cm LVOT Diam 2.00 cm LVOT Area 3.14 cm2 LVOT Mean [place] 57.30 cm/sec LVOT Mean PG 2.00 mmHg LVOT Peak [place] 93.30 [ 70.00 - 110.00 ] cm/sec LVOT Peak PG 3.00 mmHg LVOT VTI 20.10 cm MV E Peak [place]berth 101.00 [ 60.00 - 130.00 ] cm/sec MV A Peak [place] 36.80 [ 100.00 - 120.00 ] cm/sec MV E/A 2.70 [ 0.80 - 1.50 ] ratio MV Decel Time 208.00 [ 104.00 - 258.00 ] msec MV PHT 79.00 [ 20.00 - 100.00 ] ms PV Peak [place]th 107.00 [ 40.00 - 80.00 ] cm/sec PV Peak PG 5.00 mmHg TR Peak [place] 235.00 [ 100.00 - 280.00 ] cm/sec TR Peak PG 22.00 mmHg Measurement Value Normal Range Doppler - FINDINGS: Performing Technologist: Izzy Beth. Facility: This exam was performed at [facility], [address] [place] [address]. Left Ventricle: Normal left ventricular systolic function. The left ventricular chamber size is normal. Normal left ventricular wall thickness. Ejection fraction is estimated at 55-60 %. Diastolic Function: Diastolic function is normal. Cardiac Rhythm: Normal sinus rhythm. Right Ventricle: Normal right ventricular size. Normal right ventricular function. TAPSE is 2.24 cm. Left Atrium: The left atrium is normal in size. Right Atrium: The right atrium is normal in size. Atrial Septum: Normal atrial septum. Mitral Valve: Trivial mitral regurgitation. Aortic Valve: No significant aortic stenosis or insufficiency. Trileaflet aortic valve. Tricuspid Valve: There is trivial tricuspid regurgitation. Pulmonic Valve: Normal pulmonic valve appearance and function. Pericardium: Normal pericardium with no significant pericardial effusion or masses seen. Aorta: Normal aortic root. IVC: Normal size and normal respiratory collapse consistent with normal right atrial pressure (<5 mmHg). CONCLUSIONS: Normal left ventricular systolic function. The left ventricular chamber size is normal. Normal left ventricular wall thickness. Ejection fraction is estimated at 55-60 %. Diastolic function is normal. Normal sinus rhythm. Normal right ventricular size. Normal right ventricular function. TAPSE is 2.24 cm. The left atrium is normal in size. The right atrium is normal in size. Normal atrial septum. Trivial mitral regurgitation. No significant aortic stenosis or insufficiency. Trileaflet aortic valve. There is trivial tricuspid regurgitation. Normal pulmonic valve appearance and function. Normal pericardium with no significant pericardial effusion or masses seen. Normal aortic root. Normal size and normal respiratory collapse consistent with normal right atrial pressure (<5 mmHg). Electronically Signed By: Cristhian Hamm MD. [facility] 2025-02-11 20:38:33 CDT CC: CC: us Henrry Jacob MD CV ECHO ORDERABLES Final Result [facility] * Holter monitor - 48 hour (01/28/2025 3:40 PM CDT) 01/28/2025 3:40 PM CDT Narrative [facility] - 02/11/2025 6:51 PM CDT Holter Report Patient Name: REENA HAWKINS R : 2000 Study Date: 01/28/2025 3:40:36 PM Gender: F Tech: Location: [facility] BSA: Weight(Kg): Order Provider: HENRRY JACOB PROCEDURES: Holter Report: Holter Monitor. INDICATIONS: Dizziness. FINDINGS: Facility: This exam was performed at [address] ECG: The basic rhythm was normal sinus rhythm and shows sign of artifact. Sinus tachycardia. Holter Data: Recording Duration: 5DAY. Minimum HR: 49 bpm. Maximum HR: 154 bpm. Mean HR: 81 bpm. CONCLUSIONS: Recording Duration: 5DAY. Minimum HR: 49 bpm. Maximum HR: 154 bpm. Mean HR: 81 bpm. The basic rhythm was normal sinus rhythm and shows sign of artifact. Sinus tachycardia. Symptoms did not correlate with any arrhythmia. Symptoms of heart fluttering/ racing anxiety correlated with sinus rhythm and sinus tachcyardia rates between 76 bpm and 100 bpm. Electronically Signed By: Cristhian Hamm MD. [facility] 2025-02-11 18:50:28 CDT CC: CC: Procedure Note Cristhian Hamm MD - 02/11/2025 Holter Report Patient Name: REENA HAWKINS R : 2000 Study Date: 01/28/2025 3:40:36 PM Gender: F Tech: Location: [facility] BSA: Weight(Kg): Order Provider: HENRRY JACOB PROCEDURES: Holter Report: Holter Monitor. INDICATIONS: Dizziness. FINDINGS: Facility: This exam was performed at [facility], [address] [place] [address]. ECG: The basic rhythm was normal sinus rhythm and shows sign of artifact. Sinus tachycardia. Holter Data: Recording Duration: 5DAY. Minimum HR: 49 bpm. Maximum HR: 154 bpm. Mean HR: 81 bpm. CONCLUSIONS: Recording Duration: 5DAY. Minimum HR: 49 bpm. Maximum HR: 154 bpm. Mean HR: 81 bpm. The basic rhythm was normal sinus rhythm and shows sign of artifact. Sinus tachycardia. Symptoms did not correlate with any arrhythmia. Symptoms of heart fluttering/ racing anxiety correlated with sinus rhythm and sinus tachcyardia rates between 76 bpm and 100 bpm. Electronically Signed By: Cristhian Hamm MD. [facility] 2025-02-11 18:50:28 CDT CC: CC: Henrry Jacob MD CV CARDIAC SERVICES ORDERABLES F inal Result Performing Organization Address City/[facility] Co de Phone Number [facility] * Iron Deficiency Panel (01/28/2025 3:27 PM CDT) Iron 115 50 - 170 ug/dl [facility] Transferrin 252 180 - 382 mg/dl [facility] Total Iron Binding Capacity 315 282 - 427 ug/dl [facility] Iron Saturation 36.5 10.0 - 39.0 % [facility] Blood 01/28/2025 3:27 PM CDT 01/28/2025 3:27 PM CDT Comment:- Narrative [facility] - 01/28/2025 4:24 PM CDT Testing performed at [facility], [address] [place] [address]. CLIA [id number] Phone [phone] Ext [phone] Systems Analyst Quoc Campuzano MD Henrry Jacob MD LAB BLOOD ORDERABLES Final Resul t Performing Organization Address [facility] Co de Phone Number [facility] [address] [place] [address] [phone] * 25 Hydroxy Vitamin D (01/28/2025 3:27 PM CDT) Vitamin D, 25-Hydroxy 65.4 >29.9 ng/ml [facility] Comment: : Deficient <20.0 ng/ml Insufficient 20.0-29.9 ng/ml Sufficient > or = 30 ng/ml Clinical Correlation Essential When testing samples from patients whose predominant form of vitamin D is vitamin D2, such as patients receiving vitamin D2 supplementation, results that are subtherapeutic should be confirmed with another method, such as LC-MS/MS, before being used for patient management. Blood 01/28/2025 3:27 PM CDT 01/28/2025 3:27 PM CDT Comment:- Narrative [facility] - 01/28/2025 4:58 PM CDT Testing performed at [facility], [address] [place] [address]. CLIA [id number] Phone [phone] Ext [phone] Systems Analyst Quoc Campuzano MD Henrry Jacob MD LAB BLOOD ORDERABLES Final Resul t [facility] [address] [place] [address] [phone] * (ABNORMAL) Urinalysis with microscopic (01/28/2025 3:27 PM CDT) Collection Type Clean Catch [facility] Color, UA Yellow Yellow [facility] Clarity, UA Clear Clear [facility] Specific [place], UA 1.024 1.001 - 1.035 [facility] PH, UA 7.5 5.0 - 8.0 [facility] Leukocyte Esterase, UA Trace(A) Negative [facility] Nitrite, UA Negative Negative [facility] Protein, UA Negative Negative [facility] Glucose, UA Negative Negative [facility] Ketones, UA Trace(A) Negative [facility] Urobilinogen,U A Negative Negative [facility] Bilirubin, UA Negative Negative [facility] Blood, UA Negative Negative [facility] WBC 0-2 0 - 2 [facility] RBC 0-2 0 - 2 [facility] Epithelial Cells-Ur Rare <2+ [facility] Bacteria None Seen None Seen [facility] Mucous Present [facility] Urine URINE SPECIMEN FROM URINARY BLADDER / Unknown 01/28/2025 3:27 PM CDT 01/28/2025 3:27 PM CDT Comment:- Narrative [facility] - 01/28/2025 4:19 PM CDT Testing performed at [facility], [address] [place] [address]. CLIA [id number] Phone [phone] Ext [phone] Systems Analyst Quoc Campuzano MD Henrry Jacob MD URINE ORDERABLES Final Result [address] [phone] * CBC (Hemogram) (01/28/2025 3:27 PM CDT) WBC 8.2 3.1 - 11.0 x10^3/uL [facility] RBC 4.40 4.00 - 5.10 x10^6/uL [facility] HGB 14.1 12.5 - 15.3 g/dL [facility] HCT 39.7 35.0 - 45.0 % [facility] MCV 90.2 82.0 - 98.0 fL [facility] MCH 32.0 27.2 - 33.3 pg [facility] MCHC 35.5 32.0 - 36.0 g/dL [facility] RDW-CV 11.7 11.5 - 14.7 % [facility] SD-RDW 38.5 36.5 - 50.0 fL [facility] Platelets 261 147 - 370 x10^3/uL [facility] MPV 10.1 9.1 - 12.1 fL [facility] Blood BLOOD SPECIMEN / Unknown 01/28/2025 3:27 PM CDT 01/28/2025 3:27 PM CDT Comment:- Narrative [facility] - 01/28/2025 3:49 PM CDT Testing performed at [facility], [address] [place] [address]. CLIA [id number] Phone [phone] Ext [phone] Systems Analyst Quoc Campuzano MD Henrry Jacob MD LAB BLOOD ORDERABLES Final Resul t [address] [phone] * T3, free (01/28/2025 3:27 PM CDT) T3, Free 2.89 1.58 - 3.91 pg/mL [facility] Blood 01/28/2025 3:27 PM CDT 01/28/2025 3:27 PM CDT Comment:- Narrative [facility] - 01/28/2025 4:58 PM CDT Testing performed at [facility], [address] [place] [address]. CLIA [id number] Phone [phone] Ext [phone] Systems Analyst Quoc Campuzano MD Henrry Jacob MD LAB BLOOD ORDERABLES Final Resul t Performing Organization Address [facility] Co de Phone Number [facility] [address] [place] [address] [phone] * TSH (01/28/2025 3:27 PM CDT) [facility] TSH 1.056 0.350 - 4.940 uIU/mL [facility] Blood 01/28/2025 3:27 PM CDT 01/28/2025 3:27 PM CDT Comment:- Narrative [facility] - 01/28/2025 4:58 PM CDT Testing performed at [facility], [address] [place] [address]. CLIA [id number] Phone [phone] Ext [phone] Systems Analyst Quoc Campuzano MD Henrry Jacob MD LAB BLOOD ORDERABLES Final Resul t Performing Organization Address City/[facility]/ZIP Co de Phone Number [facility] [address] [place] [address] [phone] * T4, free (01/28/2025 3:27 PM CDT) Pathologist [facility] [place] Free T4 0.85 0.70 - 1.48 ng/dL [facility] Blood 01/28/2025 3:27 PM CDT 01/28/2025 3:27 PM CDT Comment:- Narrative [facility] - 01/28/2025 4:58 PM CDT Testing performed at [facility], [address] [place] [address]. CLIA [id number] Phone [phone] Ext [phone] Systems Analyst Quoc Campuzano MD Henrry Jacob MD LAB BLOOD ORDERABLES Final Resul t Performing Organization Address [facility] Co de Phone Number [address] [phone] * Folate (01/28/2025 3:27 PM CDT) Folate 7.1 7.0 - 31.4 ng/mL [facility] Blood 01/28/2025 3:27 PM CDT 01/28/2025 3:27 PM CDT Comment:- Narrative [facility] - 01/28/2025 4:58 PM CDT Testing performed at [facility], [address] [place] [address]. CLIA [id number] Phone [phone] Ext [phone] Systems Analyst Quoc Campuzano MD Henrry Jacob MD LAB BLOOD ORDERABLES Final Resul t Performing Organization Address [facility] Co de Phone Number [facility] [address] [place] [address] [phone] * Vitamin B12 (01/28/2025 3:27 PM CDT) Pathologist [facility] [place] Vitamin B-12 279 213 - 816 pg/mL [facility] Blood 01/28/2025 3:27 PM CDT 01/28/2025 3:27 PM CDT Comment:- Narrative [facility] - 01/28/2025 4:58 PM CDT Testing performed at [facility], [address] [place] [address]. CLIA [id number] Phone [phone] Ext [phone] Systems Analyst Quoc Campuzano MD Henrry Jacob MD LAB BLOOD ORDERABLES Final Resul t [facility] [address] [place] [address] [phone] * (ABNORMAL) Comprehensive metabolic panel (01/28/2025 3:27 PM CDT) Glucose 91 60 - 100 mg/dL [facility] Comment: : Fasting Plasma Glucose (FPG) <100 MG/DL Impaired Fasting Glucose (IFG) 100-125 MG/DL Provisional Diagnosis of Diabetes Mellitus > or = 126 MG/DL (Diagnosis Must Be Confirmed) BUN 9 7 - 19 mg/dL [facility] Creatinine 0.58(L) 0.60 - 1.20 mg/dL [facility] Glomerular Filtration Rate Estimate 130 >90 mL/min/1.7 3m2 [facility] Comment:The estimated GFR johnson s not been validated for women or patients with serious comorbid conditions, or with extremes of body size, muscle mass, or nutritional status. Calcium 8.9 8.4 - 10.2 mg/dL [facility] Sodium 140 136 - 145 mmol/L [facility] Potassium 3.8 3.5 - 4.6 mmol/L [facility] Chloride 105 99 - 111 mmol/L [facility] CO2 30.3 21.0 - 32.0 mmol/L [facility] Albumin 4.4 3.5 - 5.0 g/dL [facility] Total Protein 6.9 6.1 - 8.0 g/dL [facility] Bilirubin Total 0.5 0.2 - 1.2 mg/dL [facility] Alkaline Phosphatase 46 40 - 150 U/L [facility] AST 14 5 - 34 U/L [facility] ALT 8 0 - 55 U/L [facility] Blood 01/28/2025 3:27 PM CDT 01/28/2025 3:27 PM CDT Comment:- Narrative [facility] - 01/28/2025 4:24 PM CDT Testing performed at [facility], [address] [place] [address]. CLIA [id number] Phone [phone] Ext [phone] Systems Analyst Quoc Campuzano MD us Henrry Jacob MD LAB BLOOD ORDERABLES Final Resul t [facility] [address] [place] [address], [facility] [phone] * EKG 12 Lead (01/28/2025 3:23 PM CDT) 01/28/2025 3:23 PM CDT Narrative [facility] - 01/28/2025 4:36 PM CDT Vent Rate: 71 bpm RR Interval: 837 msec IN Interval: 148 msec QRS Duration: 84 msec QT Interval: 393 msec QTC Interval: 416 msec P-R-T [place]: 52 - 76 - 62 degrees IMPRESSION: SINUS RHYTHM NORMAL ECG Electronically Signed By: Cristhian Lopez Procedure Note Cristhian Lopez MD - 01/28/2025 Vent Rate: 71 bpm RR Interval: 837 msec IN Interval: 148 msec QRS Duration: 84 msec QT Interval: 393 msec QTC Interval: 416 msec P-R-T [place]: 52 - 76 - 62 degrees IMPRESSION: SINUS RHYTHM NORMAL ECG Electronically Signed By: Cristhian Lopez us Henrry Jacob MD ECG ORDERABLES Final Result Performing Organization Address City/[facility] Co de Phone Number [facility] * Urine culture (01/28/2025 3:09 PM CDT) Final Microbiology results [facility] Comment: Urine Culture Final Source: Report Date/Time: 01/30/2025 09:45 Collection Date/Time: 01/28/2025 15:09 QLAB Clinical Information Urine specimen collection type? Clean Catch Culture Observation No Growth Urine URINE SPECIMEN FROM URINARY BLADDER / Unknown 01/28/2025 3:09 PM CDT 01/28/2025 3:09 PM CDT Comment:- Narrative [facility] - 01/30/2025 9:45 AM CDT Testing performed at [facility], [address] [place] [address]. CLIA [id number] Phone [phone] Ext [phone] Systems Analyst Quoc Campuzano MD Henrry Jacob MD MICROBIOLOGY - GENERAL ORDERABLE S Final Result Performing Organization Address City/[facility]/ZIP Co de Phone Number [facility] [address] [place] [address] [phone] * Chlamydia/NG PCR (08/09/2023 12:56 PM TRANSITION RN) Source-GC/Chlam ydia Genital [facility] Chlamydia DNA by PCR NOT DETECTED Not Detected [facility] Comment:CT target DNA sequen ce is not detected. N. gonorrhoeae by PCR NOT DETECTED Not Detected [facility] Comment:NG target DNA sequen kristin are not detected. Swab GENITAL STRUCTURE / Unknown 08/09/2023 12:56 PM TRANSITION RN 08/09/2023 12:56 PM TRANSITION RN Comment:- Narrative [facility] - 08/09/2023 5:20 PM TRANSITION RN Testing is performed by [employer] GeneXpert PCR assay. A negative test result does not exclude the possibility of infection. Test results may be affected by specimen collection and/or integrity, technical error, concurrent antibiotic therapy or a low level of organisms in the specimen which may fall below the sensitivity of the test. Xpert CT/NG Assay performance has not been evaluated in patients less than 14 years of age, women, patients with a history of hysterectomy, or patients currently being treated with antimicrobial agents active against CT or NG. Results from the Xpert CT/NG Assay should be interpreted in conjunction with other laboratory and clinical data available to the physician. Testing performed at [facility], [address] [place] [address]. CLIA [id number] Phone [phone] Ext [phone] Systems Analyst Tyree Ying MD Henrry Jacob MD MICROBIOLOGY - GENERAL ORDERABLE S Final Result Performing Organization Address [facility]/ZIP Co de Phone Number [facility] [address] [place] [address] [phone] * Hepatitis C antibody (08/09/2023 12:56 PM TRANSITION RN) Hep C Ab Nonreactive Nonreactive [facility] Blood 08/09/2023 12:5 6 PM TRANSITION RN 08/09/2023 12:56 PM TRANSITION RN Comment:- Narrative [facility] - 08/10/2023 11:00 AM TRANSITION RN Testing performed at [facility], [address] [place] [address]. CLIA [id number] Phone [phone] Ext [phone] Systems Analyst Tyree Ying MD us Henrry Jacob MD LAB BLOOD ORDERABLES Final Resul t Performing Organization Address [facility] Co de Phone Number [facility] [address] [place] [address] [phone] * (ABNORMAL) Lipid panel (02/21/2022 1:21 PM CDT) Cholesterol 193 0 - 200 mg/dL [facility] Comment:Cholesterol preferre d <200 mg/dL. Clinical correlation is essential. Triglycerides 122 0 - 200 mg/dL [facility] HDL Cholesterol 47(L) >60 mg/dL [facility] LDL, Calculated 121.6 mg/dL [facility] Comment: <100 Optimal 100-129 Near Optimal/Above Optimal 130-159 Borderline High 160-189 High >or =190 Very High Cholesterol/HDL Ratio 4.1 [facility] Comment:HDL:Chol ratio Low R isk 1:3.3-1:4.3, Clinical Correlation essential. Blood 02/21/2022 1:21 PM CDT 02/21/2022 1:29 PM CDT Comment:- Narrative [facility] - 02/21/2022 1:51 PM CDT Testing performed at [facility], [address] [place] [address]. CLIA [id number] Phone [phone] Ext [phone] Systems Analyst Tyree Ying MD us Tanna Leigh MD LAB BLOOD ORDERABLES Final Resul t [facility] [address] [place] [address], [facility] [phone] from Last 3 Months or Most Recently Relevant to Health Maintenance Insurance CIG[employer] PPO CIGNA PPO Care Teams Production Sorter Relationship Specialty Start Date End Date Henrry Jacob MD [address] [place] [address], [place] [address] PCP - General Family Medicine 08/25/20
--- OUTSIDE RECORDS SUMMARY | 2025-03-27 12:18 | XMS_ITS | Encounter Summary ---
Author Organization [facility] Address [address] [place] [address] Care Team Providers Care Charge Histotechnologist Name Role Phone Vernell Ortega MD Primary Care Provider [phone] Encounter Details Date Type Department Care Team (Late st Contact Info) Description 02/13/2025 Results Follow-Up [facility] Cardiology [address] [place] [address] Cristhian Hamm MD [address] [place] [address] Troponin I, D-dimer, quantitative, XR Chest 2 Views, Additional followed-up results: 2 Social History Tobacco Use Types Packs/Day Years [...] file Travel History Travel Start Travel End [place] 03/07/2025 03/12/2025 documented as of this encounter Plan of Treatment Upcoming Encounters Date Type Department Care Team (Late st Contact Info) Description 04/17/2025 12:30 PM CDT Appointment [facility] Family Practice [address] [place] [address] Vernell Ortega MD [address] [place], [place] [phone] 06/05/2025 12:45 PM CDT Appointment [facility] Cardiology [address] [place] [address] Cristhian Hamm MD [address] [place] [address] documented as of this encounter Visit Diagnoses Not on filedocumented in this encounter Additional Health Concerns Assessment Noted Time A Body Mass Index follow-up plan has been documented for the patient 08/12/2023 9:15 PM MEDICAL OFFICE SPECIALIST documented as of this encounter Care Teams Charge Histotechnologist Relationship Specialty Start Date End Date Vernell Ortega MD [address] [place] [phone] PCP - General Family Medicine 08/25/20 documented as of this encounter
--- NOTE | 2025-03-27 13:02 | ECG_ITS ---
Test Date: 2025-03-27 13:27:54 Measurements Intervals [place] Rate: 81 P: 60 PA: 148 QRS: 66 QRSD: 81 T: 30 QT: 369 QTc: 430 Interpretive Statements SINUS RHYTHM BORDERLINE T WAVE ABNORMALITY- INFERIOR LEADS BASELINE ARTIFACT- I, II, III, AVR, AVL, AVF, V1-V6 BORDERLINE ECG No previous ECG available for comparison Electronically Signed On 03-27-2025 13:34:31 CDT by Jeromy Martinez D.O.
--- NOTE | 2025-03-27 13:03 | ED_ITS ---
HPI - Headache General Chief Complaint: Dizziness <Vik Moreira APRN - Last Filed: 03/27/25 13:14> Stated Complaint: shaky, dizzy <Vik Moreira APRN - Last Filed: 03/27/25 13:14> Time Seen by Provider: 03/27/25 13:40 <Vik Moreira APRN - Last Filed: 03/27/25 13:14> Focused HPI: 24-year-old female presents ER complaining of dizziness, shakiness, palpitations. Patient denies any chest pains or shortness of breath. Patient has a history of anxiety. Patient recently restarted her Lexapro that she has been off for a year over the weekend and took 2 doses then stop taking at because she started feeling shaky, dizzy, feeling her heart was racing out of her chest. Patient reports the dizziness feels like a pressure in her head she states that she feels off GENERAL: Well-appearing, well-nourished, and in no acute distress. HEAD: Normocephalic, atraumatic. CHEST: Clear to auscultation. ?No respiratory distress. HEART: Regular rate and rhythm.? NEURO: ?Alert and oriented x3. Patient screened in triage and initial orders placed.? ?Additional care and disposition to be based upon?diagnostic testing and treatment. <Vik Moreira APRN - Last Filed: 03/27/25 13:14> History of Present Illness HPI Narrative: Agree with HPI. Seems have significant dizziness. Has not tolerated restarting her Lexapro. Has intermittently tried Vistaril with minimal improvement. <Rolando Rosario MD - Last Filed: 03/27/25 15:10> Related Data Allergies/Adverse Reactions: Allergies Allergy/AdvReac Type Severity Reaction Status Date / Time No Known Allergies Allergy Verified 03/27/25 11:55 <Vik Moreira APRN - Last Filed: 03/27/25 13:14> Review of Systems 2 Review of Systems: All systems reviewed & are unremarkable except as noted in HPI and below <Rolando Rosario MD - Last Filed: 03/27/25 15:10> Constitutional: Constitutional: Reports no additional constitutional complaints <Rolando Rosario MD - Last Filed: 03/27/25 15:10> Cardiovascular: Cardiovascular: Reports no additional cardiovascular complaints <Rolando Rosario MD - Last Filed: 03/27/25 15:10> Respiratory: Respiratory: Reports no additional respiratory complaints < Rolando Rosario MD - Last Filed: 03/27/25 15:10> Musculoskeletal: Musculoskeletal: Reports no additional musculoskeletal complaints <Rolando Rosario MD - Last Filed: 03/27/25 15:10> Neurologic: Reports system reviewed and no additional complaints, except as documented <Rolando Rosario MD - Last Filed: 03/27/25 15:10> PMFSH Past Medical History Medical History: Medical History (Updated 03/27/25 @ 15:09 by Rolando Rosario MD) Anxiety <Vik Moreira APRN - Last Filed: 03/27/25 13:14> Surgical History Surgical History: Surgical History (Updated 03/27/25 @ 14:46 by Rolando Rosario MD) No history of previous surgery <Vik Moreira APRN - Last Filed: 03/27/25 13:14> Exam 2 Narrative: GENERAL: Well-appearing, well-nourished, and in no acute distress. HEAD: Normocephalic, atraumatic. ENT: Mucous membranes moist. CHEST: Clear to auscultation. No respiratory distress. HEART: Regular rate and rhythm. Normal peripheral pulses. ABDOMEN: Soft, nontender, nondistended. EXTREMITIES: Normal range of motion. No edema. SKIN: Warm, dry, no rash. NEURO: Alert and oriented x3. PSYCH: Normal mood and affect. <Rolando Rosario MD - Last Filed: 03/27/25 15:10> Course Course Emergency Course: Patient given reassurance. Suspect symptoms related to anxiety. Very mild leukocytosis. No urinary infection. Mild ketones. <Rolando Rosario MD - Last Filed: 03/27/25 15:10> Vital Signs Vital signs: Vital Signs Temperature 98 F 03/27/25 11:51 Pulse Rate 99 03/27/25 11:51 Respiratory Rate 16 03/27/25 11:51 Blood Pressure 132/71 03/27/25 11:51 Pulse Oximetry 100 03/27/25 11:51 Oxygen Delivery Room Air 08/06/25 11:51 Temperature 98 F 03/27/25 11:51 Pulse Rate 94 03/27/25 13:35 Respiratory Rate 16 03/27/25 11:51 Blood Pressure 113/69 03/27/25 13:35 Pulse Oximetry 100 03/27/25 11:51 Oxygen Delivery Room Air 03/27/25 11:51 <Vik Moreira APRN - Last Filed: 03/27/25 13:14> Vital Signs Temperature 98 F 03/27/25 11:51 Pulse Rate 99 03/27/25 11:51 Respiratory Rate 16 03/27/25 11:51 Blood Pressure 132/71 03/27/25 11:51 Pulse Oximetry 100 03/27/25 11:51 Oxygen Delivery Room Air 03/27/25 11:51 Temperature 98 F 03/27/25 11:51 Pulse Rate 94 03/27/25 13:35 Respiratory Rate 16 03/27/25 11:51 Blood Pressure 113/69 03/27/25 13:35 Pulse Oximetry 100 03/27/25 11:51 Oxygen Delivery Room Air 03/27/25 11:51 <Rolando Rosario MD - Last Filed: 03/27/25 15:10> MDM - Headache Lab Data Result diagrams: 03/27/25 13:29 03/27/25 13:29 <Vik Moreira APRN - Last Filed: 03/27/25 13:14> Labs: Lab Results 03/27/25 03/27/25 Range/Units 13:29 13:31 WBC 13.8 H (4.5-10.0) K/mm3 RBC 4.91 (4.2-5.4) M/mm3 Hgb 15.5 H (12.0-15.0) g/dL Hct 44.3 (37.0-47.0) % MCV 90.2 (80-100) fl MCH 31.6 (26-34) pg MCHC 35.0 (32-36) g/dl RDW 11.8 (11.5-14.5) % Plt Count 283 (150-375) k/mm3 MPV 9.9 (7.4-10.4) fl Immature Gran % (Auto) 0.4 (0-0.5) % Neut % (Auto) 77.5 H (45.5-73.1) % Lymph % (Auto) 17.8 L (18.3-44.2) % [place] % (Auto) 3.6 (2.6-8.5) % Eos % (Auto) 0.2 (0-4.4) % Baso % (Auto) 0.5 (0.2-1.2) % Lymph # (Auto) 2.45 (0.9-3.2) K/mm3 [place] # (Auto) 0.5 (0.1-0.6) K/mm3 Eos # (Auto) 0.0 (0-0.3) K/mm3 Baso # (Auto) 0.1 (0.0-0.1) K/mm3 Abs Immat Gran (auto) 0.05 H (0.00-0.031) K/mm3 Absolute Neuts (auto) 10.7 H (1.3-6.7) K/mm3 Absolute Nucleated RBC 0.000 (0.0-0.012) K/mm3 Nucleated RBC % 0.0 (0.0-0.2) % Sodium 137 (137-145) mmol/L Potassium 3.5 (3.4-5.0) mmol/L Chloride 101 (98-107) mmol/L Carbon Dioxide 23 (22-30) mmol/L Anion Gap 13 H (4-12) mmol/L BUN 6 L (7-17) mg/dL Creatinine 0.55 L (0.7-1.0) mg/dL Estim Creat Clear Calc 127 ml/min Estimated GFR > 60 (59 - ) Glucose 113 H (65-110) mg/dL Calcium 9.4 (8.4-10.2) mg/dL Magnesium 1.9 (1.6-2.3) mg/dL Total Bilirubin 1.3 (0.2-1.3) mg/dL AST 23 (14-36) U/L ALT 14 (6-35) U/L Alkaline Phosphatase 50 (38-126) U/L Troponin I < 0.012 (0.000-0.034) ng/mL Total Protein 8.2 (6.3-8.2) g/dL Albumin 5.0 (3.5-5.1) g/dL POC Urine HCG, Qual Negative (Negative) <Vik D. Gordoshi, MARKETING COMMUNICATIONS MANAGER - Last Filed: 03/27/25 13:14> Lab Results 03/27/25 03/27/25 Range/Units 13:29 13:31 WBC 13.8 H (4.5-10.0) K/mm3 RBC 4.91 (4.2-5.4) M/mm3 Hgb 15.5 H (12.0-15.0) g/dL Hct 44.3 (37.0-47.0) % MCV 90.2 (80-100) fl MCH 31.6 (26-34) pg MCHC 35.0 (32-36) g/dl RDW 11.8 (11.5-14.5) % Plt Count 283 (150-375) k/mm3 MPV 9.9 (7.4-10.4) fl Immature Gran % (Auto) 0.4 (0-0.5) % Neut % (Auto) 77.5 H (45.5-73.1) % Lymph % (Auto) 17.8 L (18.3-44.2) % [place] % (Auto) 3.6 (2.6-8.5) % Eos % (Auto) 0.2 (0-4.4) % Baso % (Auto) 0.5 (0.2-1.2) % Lymph # (Auto) 2.45 (0.9-3.2) K/mm3 [place] # (Auto) 0.5 (0.1-0.6) K/mm3 Eos # (Auto) 0.0 (0-0.3) K/mm3 Baso # (Auto) 0.1 (0.0-0.1) K/mm3 Abs Immat Gran (auto) 0.05 H (0.00-0.031) K/mm3 Absolute Neuts (auto) 10.7 H (1.3-6.7) K/mm3 Absolute Nucleated RBC 0.000 (0.0-0.012) K/mm3 Nucleated RBC % 0.0 (0.0-0.2) % Sodium 137 (137-145) mmol/L Potassium 3.5 (3.4-5.0) mmol/L Chloride 101 (98-107) mmol/L Carbon Dioxide 23 (22-30) mmol/L Anion Gap 13 H (4-12) mmol/L BUN 6 L (7-17) mg/dL Creatinine 0.55 L (0.7-1.0) mg/dL Estim Creat Clear Calc 127 ml/min Estimated GFR > 60 (59 - ) Glucose 113 H (65-110) mg/dL Calcium 9.4 (8.4-10.2) mg/dL Magnesium 1.9 (1.6-2.3) mg/dL Total Bilirubin 1.3 (0.2-1.3) mg/dL AST 23 (14-36) U/L ALT 14 (6-35) U/L Alkaline Phosphatase 50 (38-126) U/L Troponin I < 0.012 (0.000-0.034) ng/mL Total Protein 8.2 (6.3-8.2) g/dL Albumin 5.0 (3.5-5.1) g/dL POC Urine HCG, Qual Negative (Negative) <Rolando Rosario MD - Last Filed: 03/27/25 15:10> Discharge Plan Discharge Clinical Impression: Anxiety <Vik Moreira APRN - Last Filed: 03/27/25 13:14> Patient Disposition: Home <Vik Moreira APRN - Last Filed: 03/27/25 13:14> Condition: Stable <Vik Moreira APRN - Last Filed: 03/27/25 13:14> Instructions: Anxiety (ED) <Vik Moreira APRN - Last Filed: 03/27/25 13:14> Additional Instructions: Return ER if you have thoughts of self-harm or harm towards others. May take the Ativan at night to help with sleep. Speak with your primary care physician about long-term management of your anxiety. <Vik Moreira APRN - Last Filed: 03/27/25 13:14> Patient Language: Sri Lankan <Vik Moreira APRN - Last Filed: 03/27/25 13:14> Prescriptions: New lorazepam [Ativan] 0.5 mg tablet 0.5 mg PO HS PRN (Reason: anxiety) Qty: 7 0RF <Vik Moreira APRN - Last Filed: 03/27/25 13:14> Follow-up/Referrals: PHYSICIAN NOT ON STAFF,NONSTAFF [Primary Care Provider] - 1 Week <Vik Moreira APRN - Last Filed: 03/27/25 13:14>
[2025-03-27 13:33] VITALS: BP 115/70; PULSE 82
[2025-03-27 13:35] VITALS: BP 113/69; BP 116/72; PULSE 76; PULSE 94
[2025-03-27 13:36] LABS: BEDSIDEPREGUCG Negative (Negative)
[2025-03-27 13:37] LABS: Hematocrit 44.3 % (37.0-47.0); Hemoglobin 15.5 g/dL (12.0-15.0); Immature Granulocyte Percent A 0.4 % (0-0.5); Lymphocytes Absolute Auto 2.45 K/mm3 (0.9-3.2); Mean Corpuscular HGB Conc 35.0 g/dl (32-36); Mean Corpuscular Hemoglobin 31.6 pg (26-34); Mean Corpuscular Volume 90.2 fl (80-100); Nucleated Red Blood Cells Absolute Auto 0.000 K/mm3 (0.0-0.012); Nucleated Red Blood Cells Perc 0.0 % (0.0-0.2); Platelet Count Result 283 k/mm3 (150-375); Red Blood Count 4.91 M/mm3 (4.2-5.4); White Blood Count 13.8 K/mm3 (4.5-10.0)
[2025-03-27 13:51] LABS: Alanine Aminotransferase 14 U/L (6-35); Albumin Level 5.0 g/dL (3.5-5.1); Alkaline Phosphatase 50 U/L (38-126); Anion Gap 13 mmol/L (4-12); Aspartate Amino Transferase 23 U/L (14-36); Bilirubin,Total 1.3 mg/dL (0.2-1.3); Blood Urea Nitrogen 6 mg/dL (7-17); Calcium 9.4 mg/dL (8.4-10.2); Carbon Dioxide 23 mmol/L (22-30); Chloride 101 mmol/L (98-107); Estimated CRCL calculation 127 ml/min; Estimated Glomerular Filt Rate > 60; Glucose 113 mg/dL (65-110); Magnesium 1.9 mg/dL (1.6-2.3); Potassium 3.5 mmol/L (3.4-5.0); Sodium 137 mmol/L (137-145); Total Protein 8.2 g/dL (6.3-8.2)
[2025-03-27 14:03] LABS: Troponin I < 0.012 ng/mL (0.000-0.034)
[2025-03-27] MEDS: SODIUM CHLORIDE 0.9% IV 1,000 ML 999 ML IV CONT (14:04)
--- OUTSIDE RECORDS SUMMARY | 2025-03-27 14:11 | XMS_ITS | Encounter Summary ---
Author Organization [employer] Address [address] [place] [address] Care Team Providers Care Outreach Clinician Name Role Phone Vernell Ortega MD Primary Care Provider [phone] Encounter Details Date Type Department Care Team (Late st Contact Info) Description 02/13/2025 Results Follow-Up [facility] Cardiology [address] [place] [address] Cristhian Hamm MD [address] [place] [address] Troponin I, D-dimer, quantitative, XR [...] Info) Description 04/17/2025 12:30 PM CDT Appointment [facility] Family Practice [address] [place] [address] Vernell Ortega MD [address] [place], [place] [phone] 06/05/2025 12:45 PM CDT Appointment [facility] Cardiology [address] [place] [address] Cristhian Hamm MD [address] [place] [address] documented as of this encounter Visit Diagnoses Not on filedocumented in this encounter Additional Health Concerns Assessment Noted Time A Body Mass Index follow-up plan has been documented for the patient 08/12/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
--- OUTSIDE RECORDS SUMMARY | 2025-03-27 14:11 | XMS_ITS | Clinical Summary ---
Author Organization [employer] Address [address] [place] [id number] Care Team Providers Care Route Contractor Name Role Phone Henrry Jacob MD Primary Care Provider [phone] Source Comments This disclosure is being made pursuant to the [employer] program and maynot contain all information available regarding this patient.[employer] Allergies No known active allergies Medications fexofenadine [...] Department Care Team Description 03/27/2025 Orders Only [facility] [address] [phone] Zully Barnett RN 03/26/2025 Results Follow-Up [place] [address] [address] [phone] Henrry Jacob MD Thinprep Imaging Pap And HPV Mrna E6/E7 03/26/2025 Telephone [place] [address] [phone] Zully Barnett, RN lexapro side effects 03/20/2025 3:30 PM CDT Office Visit [place] [address] [phone] Henrry Jacob MD Routine medical exam (Primary Dx); Routine Papanicolaou smear; Anxiety 03/20/2025 Travel 03/04/2025 9:15 AM CDT Office Visit [facility] [address] [place] [address] [address] [phone] Cristhian Hamm MD SOB (shortness of breath) (Primary Dx); Lightheadedness 03/04/2025 8:00 AM CDT Clinical Support [facility] [address] [place] [phone] Cristhian Hamm MD Cook, Cynthia A, RN Chest pain, unspecified type; SOB (shortness of breath); Light headed 03/03/2025 Travel 02/27/2025 4:20 PM CDT Office Visit [facility] [address] [place], [place] [phone] Henrry Jacob MD Anxiety (Primary Dx); Dizziness; Lightheadedness; Palpitations 02/27/2025 Travel 02/13/2025 10:20 AM CDT Clinical Support [facility] Imaging [address] [place], [place] [phone] Cristhian Hamm MD MarkerAmanda harmon, RTR Chest pain, unspecified type; SOB (shortness of breath); Light headed 02/13/2025 10:15 AM CDT Lab [facility] [address] [place] [phone] Cristhian Hamm MD Chest pain, unspecified type; SOB (shortness of breath); Light headed 02/13/2025 9:30 AM CDT Office Visit [facility] [address] [place] [phone] Henrry Jacob MD Rafi, Adam, MD Chest pain, unspecified type (Primary Dx); SOB (shortness of breath); Light headed 02/13/2025 Results Follow-Up [facility] [address] [place] [phone] Cristhian Hamm MD Troponin I, D-dimer, quantitative, XR Chest 2 Views, Additional followed-up results: 2 02/13/2025 Travel 02/07/2025 4:00 PM CDT Clinical Support [facility] [address] [place] [phone] Henrry Jacob MD Wilson, Annie N, RTR Dizziness; Lightheadedness; Palpitations 02/07/2025 Travel 01/28/2025 4:30 PM CDT Lab [facility] [place] [phone] Henrry Jacob MD 01/28/2025 4:15 PM CDT Clinical Support [facility] [address] [place] [address] [phone] Henrry Jacob MD Ritterbusch, Tammy J, [facility] Dizziness; Lightheadedness; Palpitations 01/28/2025 3:25 PM CDT Lab [facility] [place] [phone] Henrry Jacob MD Dizziness; Lightheadedness; Palpitations 01/28/2025 3:20 PM CDT Clinical Support [facility] Imaging [facility] [facility] [place] [phone] Henrry Jacob MD Bigelow, Elisha A, RTR Dizziness; Lightheadedness; Palpitations 01/28/2025 2:10 PM CDT Office Visit [address] [phone] Henrry Jacob MD Anxiety (Primary Dx); Dizziness; Lightheadedness; Palpitations 01/28/2025 Results Follow-Up [address] [phone] Goldy Chiang MA CBC (Hemogram), Urinalysis with [...] dose vial 05/06/2020 Influenza Split 05/30/2009 LIVE Vrxuwqr-Efayw-Ypizeif ( M-M-R II) MMR 04/03/2007,06/12/2002 LIVE Varicella [...] file Travel History Travel Start Travel End [place] 03/07/2025 03/12/2025 Last Filed Vital Signs [...] Info) Description 04/17/2025 12:30 PM CDT Appointment [facility] [address] [place] [phone] Henrry Jacob MD [address] [place] [address] 06/05/2025 12:45 PM CDT Appointment [facility] [address] [place] [phone] Cristhian Hamm MD [address] [place] [address] Health Maintenance Due Date Last Done [...] CHLAMYDIA/NG PCR STAT 08/09/2023 12:5 6 PM DISTANCE LEARNING TECHNICIAN History of chlamydia HEPATITIS C ANTIBODY Routine 08/09/2023 12:56 PM DISTANCE LEARNING TECHNICIAN Screen for STD (sexually transmitted disease) LIPID PANEL Routine 02/21/2022 1:21 PM CDT Medication management from Last 3 Months or Most Recently Relevant to Health Maintenance Results * (ABNORMAL) Thinprep Imaging Pap And HPV Mrna E6/E7 (03/20/2025 4:37 PM CDT) Clinical Information: None given [employer] [facility] Comment:[SL] Date LMP UNKNOWN [facility] Comment:[SL] Previous PAP 03/15/23 [facility] Comment:[SL] Prev BX NO [facility] Comment:[SL] Surepath Source Cervix [facility] Comment:[SL] Specimen Adequacy Satisfactory for evaluation. Endocervical/van sformation zone component present. Age and/or menstrual status not provided [facility] Comment:[SL] General Categorization Cytology Results: Epithelial Cell Abnormality(A) [facility] Comment:[SL] Interp/Result Atypical Squamous Cells of Undetermined Significance (ASC-US)(A) [facility] Comment:[SL] Infection Fungal organisms morphologically consistent with Kim spp. [facility] Comment:[SL] Comment: This Pap test has been evaluated with the ThinPrep(R) Imaging System. Suggest clinical correlation and follow-up as clinically appropriate [facility] Comment:[SL] Distance Education Coordinator SEE NOTE NATHALIE [facility] Comment: TMK, CT(ASCP) CT Screening Location: [place] [address] [place] [address] CLIA: [id number] Slide preparation performed at: [facility], [address] [place] [address], [address] CLIA: [id number] [] Pathologist: Bayron Ross M.D., Board Certified in Anatomic Pathology and Cytopathology. (electronic signature) Pathologist Release Date/Time: 03/26/2025 09:22AM [facility] Comment:[SL] See Note SEE NOTE [facility] Comment: EXPLANATORY NOTE: The Pap is [...] HPV mRNA E6/E7 Not Detected Not Detected [facility] Comment: Methodology: Principal Database Developer-Mediated Amplification This assay detects E6/E7 viral messenger RNA (mRNA) from 14 high-risk HPV types (16,18,31,33,35,39,45,51,52,56,58,59,66,68). Cervical sources are required for HPV testing. If a vaginal source from a patient who has had a total hysterectomy with removal of cervix was submitted, please contact the testing laboratory for alternative testing options. For additional information, please refer to http://education.True&Co/faq/KMA663m2 (This link if provided for information/ educational purposes only.) [facility] order number: [id number] [CA] CERVIX UTERI STRUCTURE / Unknown 03/20/2025 4:37 PM CDT 03/22/2025 7:27 PM CDT Comment:- Narrative [facility] - 03/26/2025 10:03 AM CDT Testing performed at: [place], [facility], [address], Senior Applications Architect: Bakari Flores Testing performed at: [facility], [address], [place], [address], Senior Applications Architect: Earl Hansen Henrry Jacob MD PATHOLOGY/CYTOLOGY ORDERABLES Fi nal Result [facility] [address] [phone] * Stress test only exercise (03/04/2025 7:53 AM CDT) 03/04/2025 7:53 AM CDT Narrative [facility] - 03/04/2025 9:45 AM CDT Stress Test Report Patient Name: REENA HAWKINS R : 2000 Study Date: 03/04/2025 7:53:52 AM Gender: F Tech: Location: [facility] BSA: Weight(LB): 132.28 Quality: Good Order Provider: CRISTHIAN HAMM Account #: PROCEDURES: Stress Test Report: Treadmill stress test. INDICATIONS: Chest pain. Dizziness. Shortness of breath. FINDINGS: Facility: This exam was performed at [facility], [address] [place] [address]. Supervising Nurse: Cielo Engle RN. Supervising Physician: Dr. Hamm. ECG At Rest: Resting ECG shows Resting ECG shows normal sinus rhythm. Procedure Data: Bob Protocol. Baseline HR 105 bpm. Peak HR 188 bpm. Baseline BP 108/78. BP at Peak Exercise 128/56. Maximum BP observed 128/56. Predicted Maximal HR 197 bpm. Percent PMHR Achieved 95 %. Exercise Time 10 min 57 sec. Double Product 27233. METs 12.1. Reason For Termination patient request, [...] 70% Electronically Signed By: Cristhian Hamm MD. [facility] 2025-03-04 09:44:12 CDT CC: CC: Procedure Note Cristhian Hamm MD - 03/04/2025 Stress Test Report Patient Name: REENA HAWKINS R : 2000 Study Date: 03/04/2025 7:53:52 AM Gender: F Tech: Location: [facility] BSA: Weight(LB): 132.28 Quality: Good Order Provider: CRISTHIAN HAMM Account #: PROCEDURES: Stress Test Report: Treadmill stress test. INDICATIONS: Chest pain. Dizziness. Shortness of breath. FINDINGS: Facility: This exam was performed at [facility], [address] [place] [address]. Supervising Nurse: Cielo Engle RN. Supervising Physician: Dr. Hamm. ECG At Rest: Resting ECG shows Resting ECG shows normal sinus rhythm. Procedure Data: Bob Protocol. Baseline HR 105 bpm. Peak HR 188 bpm. Baseline BP 108/78. BP at Peak Exercise 128/56. Maximum BP observed 128/56. Predicted Maximal HR 197 bpm. Percent PMHR Achieved 95 %. Exercise Time 10 min 57 sec. Double Product 50791. METs 12.1. Reason For Termination patient request, [...] 70% Electronically Signed By: Cristhian Hamm MD. [facility] 2025-03-04 09:44:12 CDT CC: CC: us Cristhian Hamm MD CV CARDIAC SERVICES ORDERABLES F inal Result [facility] * XR Chest 2 Views (02/13/2025 10:20 AM CDT) Anatomical Region Laterality Modality Chest Computed Radiogr aphy 02/13/2025 10:2 0 AM CDT Narrative 02/13/2025 8:43 [place] [address] DIAGNOSTIC IMAGING Name: REENA HAWKINS Ordering Phys: CRISTHIAN HAMM Date of : 2000 Gender: F Accession Number: [id number] EXAM DESCRIPTION: XR CHEST 2 VIEWS REASON [...] Procedure Note John Choi MD - 02/13/2025 [place] [address] DIAGNOSTIC IMAGING Name: REENA HAWKINS Ordering Phys: CRISTHIAN HAMM Date of : 2000 Gender: F Accession Number: [id number] EXAM DESCRIPTION: XR CHEST 2 VIEWS REASON [...] by John Choi M.D. Cristhian Hamm MD [facility] ORDERABLE S Final Result * Probnp, N-Terminal (02/13/2025 10:11 AM CDT) NT-proBNP 75 <125 pg/mL [facility] Comment:[facility] order number: [id number] Blood 02/13/2025 10:1 1 AM CDT 02/14/2025 3:10 AM CDT Comment:- Narrative [facility] - 02/14/2025 2:36 PM CDT Testing performed at: [facility], [address] [place] [address], [phone], Senior Applications Architect: Earl Hansen MD Cristhian Hamm MD LAB BLOOD ORDERABLES Final Resul t Performing Organization Address [facility] de Phone Number [facility] [address] [place] [address] [phone] * Troponin I (02/13/2025 10:11 AM CDT) Pathologist [facility] Troponin I HIGH SENSITIVITY <2.7 <14.0 ng/L [facility] Blood BLOOD SPECIMEN / Unknown 02/13/2025 10:11 AM CDT 02/13/2025 10:11 AM CDT Comment:- Narrative [facility] - 02/13/2025 12:22 PM CDT No results for input(s): TROPONIN, [id number], TROPIHISENS in the last 72 hours. No lab exists for component: TROPONIN I Testing performed at [facility], [address] [place] [address]. CLIA [id number] Phone [phone] Ext [phone] Senior Applications Architect Quoc Campuzano MD Cristhian Hamm MD LAB BLOOD ORDERABLES Final Resul t Performing Organization Address [facility] de Phone Number [facility] [address] [place] [address] [phone] * D-dimer, quantitative (02/13/2025 10:11 AM CDT) Pathologist [facility] D-Dimer Sens Quant <0.19 <0.50 mg/L (FEU) [facility] Blood 02/13/2025 10:1 1 AM CDT 02/13/2025 10:11 AM CDT Comment:- Narrative [facility] - 02/13/2025 11:30 AM CDT A [...] infections -Liver cirrhosis - Testing performed at [facility], [address] [place] [address]. CLIA [id number] Phone [phone] Ext [phone] Senior Applications Architect Quoc Campuzano MD us Cristhian Hamm MD LAB BLOOD ORDERABLES Final Resul t [facility] [address] [place] [address] [phone] * TTE (Transthoracic Echo) Complete (02/07/2025 3:57 PM CDT) 02/07/2025 3:57 PM CDT Narrative [facility] - 02/11/2025 8:38 PM CDT Echocardiographic [...] Beth. Facility: This exam was performed at [facility], [address] [place] [address]. Left Ventricle: Normal left ventricular systolic function. [...] mmHg). Electronically Signed By: Cristhian Hamm MD. [facility] 2025-02-11 20:38:33 CDT CC: CC: Procedure Note Cristhian Hamm MD - 02/11/2025 Echocardiographic Report Patient Name: REENA HAWKINS R : 2000 Study Date: 02/07/2025 3:57:41 PM Gender: F Tech: Location: [facility] Ref.Provider: HENRRY JACOB Height(Cm): 170 BSA: 1.71 [...] Beth. Facility: This exam was performed at [facility], [address] [place] [address]. Left Ventricle: Normal left ventricular systolic function. [...] mmHg). Electronically Signed By: Cristhian Hamm MD. [facility] 2025-02-11 20:38:33 CDT CC: CC: us Henrry Jacob MD CV ECHO ORDERABLES Final Result [facility] * Holter monitor - 48 hour (01/28/2025 3:40 PM CDT) 01/28/2025 3:40 PM CDT Narrative [facility] - 02/11/2025 6:51 PM CDT Holter Report Patient Name: REENA HAWKINS R : 2000 Study Date: 01/28/2025 3:40:36 PM Gender: F Tech: Location: [facility] BSA: Weight(Kg): Order Provider: HENRRY JACOB PROCEDURES: Holter Report: Holter Monitor. INDICATIONS: Dizziness. FINDINGS: Facility: This exam was performed at [address] ECG: The basic rhythm was normal [...] bpm. Electronically Signed By: Cristhian Hamm MD. [facility] 2025-02-11 18:50:28 CDT CC: CC: Procedure Note Cristhian Hamm MD - 02/11/2025 Holter Report Patient Name: REENA HAWKINS R : 2000 Study Date: 01/28/2025 3:40:36 PM Gender: F Tech: Location: [facility] BSA: Weight(Kg): Order Provider: HENRRY JACOB PROCEDURES: Holter Report: Holter Monitor. INDICATIONS: Dizziness. FINDINGS: Facility: This exam was performed at [facility], [address] [place] [address]. ECG: The basic rhythm was normal sinus [...] bpm. Electronically Signed By: Cristhian Hamm MD. [facility] 2025-02-11 18:50:28 CDT CC: CC: Henrry Jacob MD CV CARDIAC SERVICES ORDERABLES F inal Result Performing Organization Address [facility] Co de Phone Number [facility] * Iron Deficiency Panel (01/28/2025 3:27 PM CDT) Iron 115 50 - 170 ug/dl [facility] Transferrin 252 180 - 382 mg/dl [facility] Total Iron Binding Capacity 315 282 - 427 ug/dl [facility] Iron Saturation 36.5 10.0 - 39.0 % [facility] Blood 01/28/2025 3:27 PM CDT 01/28/2025 3:27 PM CDT Comment:- Narrative [facility] - 01/28/2025 4:24 PM CDT Testing performed at [facility], [address] [place] [address]. CLIA [id number] Phone [phone] Ext [phone] Senior Applications Architect Quoc Campuzano MD Henrry Jacob MD LAB BLOOD ORDERABLES Final Resul t Performing Organization Address [facility] Co de Phone Number [facility] [address] [place] [address] [phone] * 25 Hydroxy Vitamin D (01/28/2025 3:27 PM CDT) Vitamin D, 25-Hydroxy 65.4 >29.9 ng/ml [facility] Comment: : Deficient <20.0 ng/ml Insufficient [...] CDT 01/28/2025 3:27 PM CDT Comment:- Narrative [facility] - 01/28/2025 4:58 PM CDT Testing performed at [facility], [address] [place] [address]. CLIA [id number] Phone [phone] Ext [phone] Senior Applications Architect Quoc Campuzano MD Henrry Jacob MD LAB BLOOD ORDERABLES Final Resul t [facility] [address] [place] [address] [phone] * (ABNORMAL) Urinalysis with microscopic (01/28/2025 3:27 PM CDT) Collection Type Clean Catch [facility] Color, UA Yellow Yellow [facility] Clarity, UA Clear Clear [facility] Specific [place], UA 1.024 1.001 - 1.035 [facility] PH, UA 7.5 5.0 - 8.0 [facility] Leukocyte Esterase, UA Trace(A) Negative [facility] Nitrite, UA Negative Negative [facility] Protein, UA Negative Negative [facility] Glucose, UA Negative Negative [facility] Ketones, UA Trace(A) Negative [facility] Urobilinogen,U A Negative Negative [facility] Bilirubin, UA Negative Negative [facility] Blood, UA Negative Negative [facility] WBC 0-2 0 - 2 [facility] RBC 0-2 0 - 2 [facility] Epithelial Cells-Ur Rare <2+ [facility] Bacteria None Seen None Seen [facility] Mucous Present [facility] Urine URINE SPECIMEN FROM URINARY BLADDER / Unknown 01/28/2025 3:27 PM CDT 01/28/2025 3:27 PM CDT Comment:- Narrative [facility] - 01/28/2025 4:19 PM CDT Testing performed at [facility], [address] [place] [address]. CLIA [id number] Phone [phone] Ext [phone] Senior Applications Architect Quoc Campuzano MD Henrry Jacob MD URINE ORDERABLES Final Result [address] [phone] * CBC (Hemogram) (01/28/2025 3:27 PM CDT) WBC 8.2 3.1 - 11.0 x10^3/uL [facility] RBC 4.40 4.00 - 5.10 x10^6/uL [facility] HGB 14.1 12.5 - 15.3 g/dL [facility] HCT 39.7 35.0 - 45.0 % [facility] MCV 90.2 82.0 - 98.0 fL [facility] MCH 32.0 27.2 - 33.3 pg [facility] MCHC 35.5 32.0 - 36.0 g/dL [facility] RDW-CV 11.7 11.5 - 14.7 % [facility] SD-RDW 38.5 36.5 - 50.0 fL [facility] Platelets 261 147 - 370 x10^3/uL [facility] MPV 10.1 9.1 - 12.1 fL [facility] Blood BLOOD SPECIMEN / Unknown 01/28/2025 3:27 PM CDT 01/28/2025 3:27 PM CDT Comment:- Narrative [facility] - 01/28/2025 3:49 PM CDT Testing performed at [facility], [address] [place] [address]. CLIA [id number] Phone [phone] Ext [phone] Senior Applications Architect Quoc Campuzano MD Henrry Jacob MD LAB BLOOD ORDERABLES Final Resul t [address] [phone] * T3, free (01/28/2025 3:27 PM CDT) T3, Free 2.89 1.58 - 3.91 pg/mL [facility] Blood 01/28/2025 3:27 PM CDT 01/28/2025 3:27 PM CDT Comment:- Narrative [facility] - 01/28/2025 4:58 PM CDT Testing performed at [facility], [address] [place] [address]. CLIA [id number] Phone [phone] Ext [phone] Senior Applications Architect Quoc Campuzano MD Henrry Jacob MD LAB BLOOD ORDERABLES Final Resul t Performing Organization Address [facility] Co de Phone Number [facility] [address] [place] [address] [phone] * TSH (01/28/2025 3:27 PM CDT) [facility] TSH 1.056 0.350 - 4.940 uIU/mL [facility] Blood 01/28/2025 3:27 PM CDT 01/28/2025 3:27 PM CDT Comment:- Narrative [facility] - 01/28/2025 4:58 PM CDT Testing performed at [facility], [address] [place] [address]. CLIA [id number] Phone [phone] Ext [phone] Senior Applications Architect Quoc Campuzano MD Henrry Jacob MD LAB BLOOD ORDERABLES Final Resul t Performing Organization Address [facility]/ZIP Co de Phone Number [facility] [address] [place] [address] [phone] * T4, free (01/28/2025 3:27 PM CDT) Pathologist [facility] Free T4 0.85 0.70 - 1.48 ng/dL [facility] Blood 01/28/2025 3:27 PM CDT 01/28/2025 3:27 PM CDT Comment:- Narrative [facility] - 01/28/2025 4:58 PM CDT Testing performed at [facility], [address] [place] [address]. CLIA [id number] Phone [phone] Ext [phone] Senior Applications Architect Quoc Campuzano MD Henrry Jacob MD LAB BLOOD ORDERABLES Final Resul t Performing Organization Address [facility] Co de Phone Number [address] [phone] * Folate (01/28/2025 3:27 PM CDT) Folate 7.1 7.0 - 31.4 ng/mL [facility] Blood 01/28/2025 3:27 PM CDT 01/28/2025 3:27 PM CDT Comment:- Narrative [facility] - 01/28/2025 4:58 PM CDT Testing performed at [facility], [address] [place] [address]. CLIA [id number] Phone [phone] Ext [phone] Senior Applications Architect Quoc Campuzano MD Henrry Jacob MD LAB BLOOD ORDERABLES Final Resul t Performing Organization Address [facility] Co de Phone Number [facility] [address] [place] [address] [phone] * Vitamin B12 (01/28/2025 3:27 PM CDT) Pathologist [facility] Vitamin B-12 279 213 - 816 pg/mL [facility] Blood 01/28/2025 3:27 PM CDT 01/28/2025 3:27 PM CDT Comment:- Narrative [facility] - 01/28/2025 4:58 PM CDT Testing performed at [facility], [address] [place] [address]. CLIA [id number] Phone [phone] Ext [phone] Senior Applications Architect Quoc Campuzano MD Henrry Jacob MD LAB BLOOD ORDERABLES Final Resul t [facility] [address] [place] [address] [phone] * (ABNORMAL) Comprehensive metabolic panel (01/28/2025 3:27 PM CDT) Glucose 91 60 - 100 mg/dL [facility] Comment: : Fasting Plasma Glucose (FPG) <100 MG/DL Impaired Fasting Glucose (IFG) 100-125 MG/DL Provisional Diagnosis of Diabetes Mellitus > or = 126 MG/DL (Diagnosis Must Be Confirmed) BUN 9 7 - 19 mg/dL [facility] Creatinine 0.58(L) 0.60 - 1.20 mg/dL [facility] Glomerular Filtration Rate Estimate 130 >90 mL/min/1.7 3m2 [facility] Comment:The estimated GFR johnson s not been validated for women or patients with serious comorbid conditions, or with extremes of body size, muscle mass, or nutritional status. Calcium 8.9 8.4 - 10.2 mg/dL [facility] Sodium 140 136 - 145 mmol/L [facility] Potassium 3.8 3.5 - 4.6 mmol/L [facility] Chloride 105 99 - 111 mmol/L [facility] CO2 30.3 21.0 - 32.0 mmol/L [facility] Albumin 4.4 3.5 - 5.0 g/dL [facility] Total Protein 6.9 6.1 - 8.0 g/dL [facility] Bilirubin Total 0.5 0.2 - 1.2 mg/dL [facility] Alkaline Phosphatase 46 40 - 150 U/L [facility] AST 14 5 - 34 U/L [facility] ALT 8 0 - 55 U/L [facility] Blood 01/28/2025 3:27 PM CDT 01/28/2025 3:27 PM CDT Comment:- Narrative [facility] - 01/28/2025 4:24 PM CDT Testing performed at [facility], [address] [place] [address]. CLIA [id number] Phone [phone] Ext [phone] Senior Applications Architect Quoc Campuzano MD us Henrry Jacob MD LAB BLOOD ORDERABLES Final Resul t [facility] [address] [place] [address], [facility] [phone] * EKG 12 Lead (01/28/2025 3:23 PM CDT) 01/28/2025 3:23 PM CDT Narrative [facility] - 01/28/2025 4:36 PM CDT Vent Rate: 71 bpm RR Interval: 837 msec WV Interval: 148 msec QRS Duration: 84 msec QT Interval: 393 msec QTC Interval: 416 msec P-R-T [place]: 52 - 76 - 62 degrees IMPRESSION: SINUS RHYTHM NORMAL ECG Electronically Signed By: Crsithian Lopez Procedure Note Cristhian Lopez MD - 01/28/2025 Vent Rate: 71 bpm RR Interval: 837 msec WV Interval: 148 msec QRS Duration: 84 msec QT Interval: 393 msec QTC Interval: 416 msec P-R-T [place]: 52 - 76 - 62 degrees IMPRESSION: SINUS RHYTHM NORMAL ECG Electronically Signed By: Cristhian Lopez us Henrry Jacob MD ECG ORDERABLES Final Result Performing Organization Address [facility] Co de Phone Number [facility] * Urine culture (01/28/2025 3:09 PM CDT) Final Microbiology results [facility] Comment: Urine Culture Final Source: Report Date/Time: 01/30/2025 09:45 Collection Date/Time: 01/28/2025 15:09 QLAB Clinical Information Urine specimen collection type? Clean Catch Culture Observation No Growth Urine URINE SPECIMEN FROM URINARY BLADDER / Unknown 01/28/2025 3:09 PM CDT 01/28/2025 3:09 PM CDT Comment:- Narrative [facility] - 01/30/2025 9:45 AM CDT Testing performed at [facility], [address] [place] [address]. CLIA [id number] Phone [phone] Ext [phone] Senior Applications Architect Quoc Campuzano MD Henrry Jacob MD MICROBIOLOGY - GENERAL ORDERABLE S Final Result Performing Organization Address [facility]/ZIP Co de Phone Number [facility] [address] [place] [address] [phone] * Chlamydia/NG PCR (08/09/2023 12:56 PM DISTANCE LEARNING TECHNICIAN) Source-GC/Chlam ydia Genital [facility] Chlamydia DNA by PCR NOT DETECTED Not Detected [facility] Comment:CT target DNA sequen ce is not detected. N. gonorrhoeae by PCR NOT DETECTED Not Detected [facility] Comment:NG target DNA sequen kristin are not detected. Swab GENITAL STRUCTURE / Unknown 08/09/2023 12:56 PM DISTANCE LEARNING TECHNICIAN 08/09/2023 12:56 PM DISTANCE LEARNING TECHNICIAN Comment:- Narrative [facility] - 08/09/2023 5:20 PM DISTANCE LEARNING TECHNICIAN Testing is performed by [employer] GeneXpert PCR assay. A negative test result [...] available to the physician. Testing performed at [facility], [address] [place] [address]. CLIA [id number] Phone [phone] Ext [phone] Senior Applications Architect Tyree Ying MD Henrry Jacob MD MICROBIOLOGY - GENERAL ORDERABLE S Final Result Performing Organization Address [facility]/ZIP Co de Phone Number [facility] [address] [place] [address] [phone] * Hepatitis C antibody (08/09/2023 12:56 PM DISTANCE LEARNING TECHNICIAN) Hep C Ab Nonreactive Nonreactive [facility] Blood 08/09/2023 12:5 6 PM DISTANCE LEARNING TECHNICIAN 08/09/2023 12:56 PM DISTANCE LEARNING TECHNICIAN Comment:- Narrative [facility] - 08/10/2023 11:00 AM DISTANCE LEARNING TECHNICIAN Testing performed at [facility], [address] [place] [address]. CLIA [id number] Phone [phone] Ext [phone] Senior Applications Architect Tyree Ying MD us Henrry Jacob MD LAB BLOOD ORDERABLES Final Resul t Performing Organization Address [facility] Co de Phone Number [facility] [address] [place] [address] [phone] * (ABNORMAL) Lipid panel (02/21/2022 1:21 PM CDT) Cholesterol 193 0 - 200 mg/dL [facility] Comment:Cholesterol preferre d <200 mg/dL. Clinical correlation is essential. Triglycerides 122 0 - 200 mg/dL [facility] HDL Cholesterol 47(L) >60 mg/dL [facility] LDL, Calculated 121.6 mg/dL [facility] Comment: <100 Optimal 100-129 Near Optimal/Above Optimal 130-159 Borderline High 160-189 High >or =190 Very High Cholesterol/HDL Ratio 4.1 [facility] Comment:HDL:Chol ratio Low R isk 1:3.3-1:4.3, Clinical Correlation essential. Blood 02/21/2022 1:21 PM CDT 02/21/2022 1:29 PM CDT Comment:- Narrative [facility] - 02/21/2022 1:51 PM CDT Testing performed at [facility], [address] [place] [address]. CLIA [id number] Phone [phone] Ext [phone] Senior Applications Architect Tyree Ying MD us Tanna Leigh MD LAB BLOOD ORDERABLES Final Resul t [facility] [address] [place] [address], [facility] [phone] from Last 3 Months or Most Recently Relevant to Health Maintenance Insurance [employer] PPO CIG[employer] PPO Care Teams Route Contractor Relationship Specialty Start Date End Date Henrry Jacob MD [address] [place] [address], [place] [address] PCP - General Family Medicine 08/25/20
--- OUTSIDE RECORDS SUMMARY | 2025-03-27 14:11 | XMS_ITS | Encounter Summary ---
Author Organization [facility] Address [address] [place] [address] Care Team Providers Care Manager Community Outreach Name Role Phone Vernell Ortega MD Primary Care Provider [phone] Encounter Details Date Type Department Care Team (Late Contact Info) Description 01/28/2025 Results Follow-Up [facility] [address] [place] [address] Goldy Chiang, [place] [address] [place] [address] CBC (Hemogram), Urinalysis with microscopic, [...] file Travel History Travel Start Travel End [place] 03/07/2025 03/12/2025 documented as of this encounter Plan of Treatment Upcoming Encounters Date Type Department Care Team (Late Contact Info) Description 04/17/2025 12:30 PM CDT Appointment [facility] [address] [place] [address] Vernell Ortega MD [address] [place] [address] 06/05/2025 12:45 PM CDT Appointment [facility] [address] [place] [phone] Cristhian Hamm MD [address] [place] [address] documented as of this encounter Procedures Procedure Name Priority Date/Time Associated Diagnosis Comments URINE CULTURE Routine 01/28/2025 3:09 PM CDT Abnormal urinalysis documented in this encounter Results * Urine culture (01/28/2025 3:09 PM CDT) Final Microbiology results [facility] Comment: Urine Culture Final Source: Report Date/Time: 01/30/2025 09:45 Collection Date/Time: 01/28/2025 15:09 QLAB Clinical Information Urine specimen collection type? Clean Catch Culture Observation No Growth Urine URINE SPECIMEN FROM URINARY BLADDER / Unknown 01/28/2025 3:09 PM CDT 01/28/2025 3:09 PM CDT Comment:- Narrative [facility] - 01/30/2025 9:45 AM CDT Testing performed at [facility], [address] [place] [address]. 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
--- OUTSIDE RECORDS SUMMARY | 2025-03-27 14:11 | XMS_ITS | Encounter Summary ---
Author Organization [employer] Address [address] [place] [address] Care Team Providers Care Carpet Cleaning Technician Name Role Phone Vernell Ortega MD Primary Care Provider [phone] Reason for Visit * Reason Onset Date Comments lexapro side effects 03/26/2025 Encounter Details Date Type Department Care Team ([facility] st Contact Info) Description 03/26/2025 Telephone Kit [facility] [address] [place] [address] Zully Barnett RN [address] [place] [address] lexapro side effects Social History [...] file Travel History Travel Start Travel End [place] 03/07/2025 03/12/2025 documented as of this [...] Info) Description 04/17/2025 12:30 PM CDT Appointment [facility] [address] [place] [phone] Vernell Ortega MD [address] [place] [address] 06/05/2025 12:45 PM CDT Appointment [facility] [address] [place] [address] Cristhian Hamm MD [address] [place] [address] documented as of this encounter Visit Diagnoses Not on filedocumented in this encounter Additional Health Concerns Assessment Noted Time A Body Mass Index follow-up plan has been documented for the patient 08/12/2023 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
--- OUTSIDE RECORDS SUMMARY | 2025-03-27 14:11 | XMS_ITS | Encounter Summary ---
Author Organization [facility] Address [address] [place] [address] Care Team Providers Care Hammer Smith Name Role Phone Vernell Ortega MD Primary Care Provider [phone] Encounter Details Date Type Department Care Team (Late Contact Info) Description 03/27/2025 Orders Only [address] [address] Zully Barnett RN [address] [place] [address] Social History Tobacco Use Types Packs/Day [...] file Travel History Travel Start Travel End [place] 03/07/2025 03/12/2025 documented as of this encounter Plan of Treatment Upcoming Encounters Date Type Department Care Team (Late Contact Info) Description 04/17/2025 12:30 PM CDT Appointment [address] [address] [place] [address] [place] [address] 06/05/2025 12:45 PM CDT Appointment [facility] [address] [place] [address] Cristhian Hamm MD [facility] [place] [address] documented as of this encounter Visit Diagnoses Not on filedocumented in this encounter Additional Health Concerns Assessment Noted Time A Body Mass Index follow-up plan has been documented for the patient 08/12/2023 9:15 PM BROACH SETTER documented as of this encounter Care Teams Hammer Smith Relationship Specialty Start Date End Date Vernell Ortega MD [address] [place] [address] PCP - General Family Medicine 08/25/20 documented as of this encounter
--- OUTSIDE RECORDS SUMMARY | 2025-03-27 14:11 | XMS_ITS | Clinical Summary ---
Author Organization [address] Address [address] [place] [phone] Care Team Providers Care Emergency Department Name Role Phone Vernell Ortega MD Primary Care Provider [phone] Allergies No known active allergies Medications hydrOXYzine [...] HPV Vaccines Completed 02/09/2016, 04/22, 03/05/2013 Insurance [facility] Care Teams Emergency Department Relationship Specialty Start Date End Date Vernell Ortega MD [address] [place], [place] [phone] PCP - General Family Medicine 03/26/23
--- OUTSIDE RECORDS SUMMARY | 2025-03-27 14:11 | XMS_ITS | Encounter Summary ---
Author Organization [employer] Address [address] [place] [address] Care Team Providers Care Powder Operator Name Role Phone Vernell Ortega MD Primary Care Provider [phone] Encounter Details Date Type Department Care Team (Late Contact Info) Description 03/26/2025 Results Follow-Up [address] [address] Vernell Ortega MD [address] [place] [address] Thinprep Imaging Pap And HPV Mrna [...] file Travel History Travel Start Travel End [place] 03/07/2025 03/12/2025 documented as of this encounter Plan of Treatment Upcoming Encounters Date Type Department Care Team (Late Contact Info) Description 04/17/2025 12:30 PM CDT Appointment [address] [address] Vernell Ortega MD [address] [place] [address] 06/05/2025 12:45 PM CDT Appointment [facility] [address] [place] [address] Cristhian Hamm MD [facility] [place] [address] documented as of this encounter Visit Diagnoses Not on filedocumented in this encounter Additional Health Concerns Assessment Noted Time A Body Mass Index follow-up plan has been documented for the patient 08/12/2023 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
[2025-03-27 14:58] LABS: Add Urine Microscopic? NO; Appearance Urine Clear (Clear); Glucose Urine UA Negative (Negative); Leukocyte Esterase Ur Negative LEU/UL (Negative); Nitrate Urine Negative (Negative); Specific Grav Ur 1.009 (1.001-1.035)
== END 2025-03-27 15:30 | disposition home or self-care (01) ==
PROVIDERS: Emergency Provider Emergency Medicine
DX: F41.9 Anxiety disorder, unspecified (principal); R94.31 Abnormal electrocardiogram [ECG] [EKG]
CPT/HCPCS: 36415; 80053; 81003; 81025; 83735; 84484; 85025; 93005; 96360; 99284; J7030